=== PATIENT | male | born 1970 | race Hispanic/Latino ===

== ENCOUNTER 2024-06-06 12:59 | Emergency (ER) | payer OTHER ==
[~2024-06-06] VITALS: Ht 182.9 cm; Wt 120.2 kg
[2024-06-06] MEDS ORDERED: IBUPROFEN 100 MG/5 ML SUSP UDCUP PO STA (13:03)
[2024-06-06] MEDS ORDERED: CEFTRIAXONE 1G VIAL IM ONE (13:30)
[2024-06-06] MEDS: TETRACAINE HCL 0.5% 4 ML OPHTH SOLN OP STA (14:13)
[2024-06-06] MEDS: FLUORESCEIN SODIUM 1 STRIP STRIP ONE (14:13)
[2024-06-06 14:22] VITALS: BP 122/78; PULSE 78; RESP 18; O2SAT 98
== END 2024-06-06 14:22 | disposition home or self-care (01) ==
LOC: EDH 12:59
DX: S05.8X2A Other injuries of left eye and orbit, initial encounter (principal); S05.8X1A Other injuries of right eye and orbit, initial encounter; E11.9 Type 2 diabetes mellitus without complications; Z88.8 Allergy status to other drugs, medicaments and biological substances; X58.XXXA Exposure to other specified factors, initial encounter; Y93.89 Activity, other specified; Y92.89 Other specified places as the place of occurrence of the external cause; Y99.8 Other external cause status

== ENCOUNTER 2024-08-17 11:54 | Emergency (ER) | payer OTHER ==
[~2024-08-17] VITALS: Ht 182.9 cm; Wt 124.7 kg
[2024-08-17] MEDS: PANTOPrazole 40 MG/VIAL IVP ONE (12:26)
[2024-08-17] MEDS: ondanSETRON 4MG INJ IVP ONE (12:26)
[2024-08-17] MEDS: LACTATED RINGERS 1000ML 1,000 ML IV ONE (12:26)
[2024-08-17] MEDS: ketOROlac 30MG VIAL (30MG/ML) IVP ONE (12:41)
[2024-08-17 12:52] LABS: BASOPHILS # (AUTO) 0.06 K/uL (0.00-0.20); BASOPHILS % (AUTO) 0.9 % (0.0-5.0); EOSINOPHILS # (AUTO) 0.26 K/uL (0.00-0.70); EOSINOPHILS % (AUTO) 3.8 % (0.0-8.0); IMMATURE GRANULOCYTE ABSOLUTE 0.01 K/uL (0-1); LYMPHOCYTES # (AUTO) 1.4 K/uL (1.0-4.8); LYMPHOCYTES % (AUTO) 20.4 % (21.0-51.0); MEAN CORPUSCULAR HEMOGLOBIN 28.9 pg (27.0-33.0); MEAN CORPUSCULAR HGB CONC 34.3 g/dL (32.0-36.0); MEAN CORPUSCULAR VOLUME 84.3 fL (79-99); MONOCYTES # (AUTO) 0.4 K/uL (0.1-1.0); MONOCYTES % (AUTO) 6.3 % (3.0-13.0); NEUTROPHILS # (AUTO) 4.7 K/uL (1.8-7.7); NEUTROPHILS % (AUTO) 68.5 % (40.0-77.0); PLATELET COUNT (AUTO) 200 K/uL (130-400); RED BLOOD CELL COUNT(AUTO) 5.22 MIL/uL (4.50-6.20); WHITE BLOOD COUNT (AUTO) 6.8 K/uL (4.8-10.8)
[2024-08-17 13:06] LABS: APPEARANCE,URINE CLEAR (CLEAR); BILIRUBIN,URINE NEGATIVE (NEGATIVE); COLOR,URINE YELLOW (YELLOW); GLUCOSE, URINE (UA) NEGATIVE (NEGATIVE); KETONES,URINE NEGATIVE (NEGATIVE); LEUKOCYTE ESTERASE ,URINE NEGATIVE Leu/uL (NEGATIVE); NITRATE,URINE NEGATIVE (NEGATIVE); OCCULT BLOOD,URINE NEGATIVE (NEGATIVE); PROTEIN,URINE NEGATIVE (NEGATIVE); UROBILINOGEN,URINE 0.2 mg/dL (0.2-1.0)
[2024-08-17 13:10] LABS: ADD UA MICROSCOPIC NO
[2024-08-17 13:11] LABS: POTASSIUM 4.1 mmol/L (3.5-5.1)
[2024-08-17 13:15] LABS: ALBUMIN 3.8 g/dL (3.5-5.0); BILIRUBIN,TOTAL 0.4 mg/dL (0.2-1.0); TOTAL PROTEIN, SERUM 7.1 g/dL (6.0-8.3)
[2024-08-17 14:18] VITALS: BP 136/68; PULSE 73; RESP 18; TEMP 98.2; O2SAT 99
[2024-08-17] MEDS: MAG/ALUM/SIMETH 30 ML UDCUP PO ONE (14:18)
[2024-08-17] MEDS: LIDOCAINE HCL 2% VISCOUS 15 ML UDCUP PO ONE (14:18)
== END 2024-08-17 14:29 | disposition home or self-care (01) ==
LOC: EDH 11:54
DX: K21.00 Gastro-esophageal reflux disease with esophagitis, without bleeding (principal); E11.9 Type 2 diabetes mellitus without complications; E78.00 Pure hypercholesterolemia, unspecified; Z88.1 Allergy status to other antibiotic agents
CPT/HCPCS: 99285; 96374; 76705; 96375; 82270; 82550; 84484; 80053; 83690; 85025; 81003; 36415; 93005; J7120; J2405; J1885; J2470

== ENCOUNTER 2024-10-02 01:45 | Inpatient (IN) | payer OTHER ==
[2024-10-02] VITALS (7 sets, daily range): BP systolic 107–145; BP diastolic 56–80; PULSE 59–70; RESP 16–18; TEMP 97.4–98; O2SAT 98
[~2024-10-02] VITALS: Ht 182.9 cm; Wt 111.2 kg
[2024-10-02 02:17] LABS: BASOPHILS # (AUTO) 0.06 K/uL (0.00-0.20); BASOPHILS % (AUTO) 0.8 % (0.0-5.0); EOSINOPHILS # (AUTO) 0.17 K/uL (0.00-0.70); EOSINOPHILS % (AUTO) 2.3 % (0.0-8.0); HEMATOCRIT 40.4 % (42-54); IMMATURE GRANULOCYTE ABSOLUTE 0.03 K/uL (0-1); LYMPHOCYTES # (AUTO) 1.5 K/uL (1.0-4.8); LYMPHOCYTES % (AUTO) 21.1 % (21.0-51.0); MEAN CORPUSCULAR HEMOGLOBIN 28.9 pg (27.0-33.0); MEAN CORPUSCULAR HGB CONC 34.7 g/dL (32.0-36.0); MEAN CORPUSCULAR VOLUME 83.5 fL (79-99); MONOCYTES # (AUTO) 0.6 K/uL (0.1-1.0); MONOCYTES % (AUTO) 7.9 % (3.0-13.0); NEUTROPHILS # (AUTO) 4.9 K/uL (1.8-7.7); NEUTROPHILS % (AUTO) 67.5 % (40.0-77.0); PLATELET COUNT (AUTO) 210 K/uL (130-400); RED BLOOD CELL COUNT(AUTO) 4.84 MIL/uL (4.50-6.20); RED CELL DISTRIBUTION WIDTH 12.1 % (11.0-15.5); WHITE BLOOD COUNT (AUTO) 7.3 K/uL (4.8-10.8)
--- NOTE | 2024-10-02 02:30 | ERN ---
General Chief Complaint: Abdominal Pain Stated Complaint: ABDOMINAL PAIN Time Seen by MD: 01:54 History of Present Illness Initial Comments Mr. Strange is a very pleasant 54-year-old male significant past medical history of morbid obesity diabetes and essential hypertension who presents today with a chief complaint of abdominal pain. Patient states that he has abdominal pain is radiating over his right upper quadrant. Patient states he had similar pain earlier this year in March where he was told he had appendicitis/cholelithiasis. Patient reports he started experiencing this pain at around 7:00 p.m. yesterday. He states he had some chicken sausage and fajitas prior to his pain. Allergies: Coded Allergies: clindamycin (Unverified Allergy, Unknown, 06/06/24) Past Medical History Past Medical History: Diabetes-Type II, High Cholesterol Past Surgical History: None Surgical History Other: VASECTOMY ROS Dictation Constitutional: Negative for fever,chills, and weight loss Eyes: Negative for injury, pain,redness, and discharge ENT: Negative for injury,pain or swelling Cardiovascular: Negative for chest pain, palpitations, and edema Respiratory: Negative for shortness of breath, cough, and wheezing, Abdomen/GI: Positive for abdominal pain Back: Negative for injury and pain : Negative for injury, bleeding and discharge MS/Extremity: Negative for injury and deformity Skin: Negative for rash, and discoloration Neuro: Negative for headache, weakness, numbness, tingling, and seizure Psych: Negative for suicide ideation, homicidal ideation, and hallucinations Physical Exam Physical Exam Dictation General: awake, alert, NAD Head/Face: Normocephalic, atraumatic Eyes: PERRL, EOMI, vision at baseline ENT: oral cavity clear, TMs clear, no signs of infection Neck: Trachea midline, supple, no nuchal rigidity Cardiovascular: RRR, normal S1/S2, No MRGs, no JVD Respiratory: CTAB, no respiratory distress, No rales or wheezes Abdomen: Positive for pain in the epigastric region. Skin: Warm, dry, normal turgor, no rash MS/Extremity: Pulses equal, no cyanosis, neurovascular intact, FROM Neuro: COAx4, GCS 15, strength 5/5, CN 2-12 intact, normal cerebellar exam, normal gait, Psych: Normal behavior, mood, and affect normal Results Laboratory and Microbiology Lab and Micro Result Laboratory Tests Test 10/02/24 02:09 10/02/24 03:20 White Blood Count 7.3 K/uL (4.8-10.8) Red Blood Count 4.84 MIL/uL (4.50-6.20) Hemoglobin 14.0 g/dL (14.0-18.0) Hematocrit 40.4 % (42-54) L Mean Corpuscular Volume 83.5 fL (79-99) Mean Corpuscular Hemoglobin 28.9 pg (27.0-33.0) Mean Corpuscular Hemoglobin Concent 34.7 g/dL (32.0-36.0) Red Cell Distribution Width 12.1 % (11.0-15.5) Platelet Count 210 K/uL (130-400) Mean Platelet Volume 10.0 fL (7.5-10.5) Immature Granulocyte % (Auto) 0.4 % (0-1) Neutrophils (%) (Auto) 67.5 % (40.0-77.0) Lymphocytes (%) (Auto) 21.1 % (21.0-51.0) Monocytes (%) (Auto) 7.9 % (3.0-13.0) Eosinophils (%) (Auto) 2.3 % (0.0-8.0) Basophils (%) (Auto) 0.8 % (0.0-5.0) Neutrophils # (Auto) 4.9 K/uL (1.8-7.7) Lymphocytes # (Auto) 1.5 K/uL (1.0-4.8) Monocytes # (Auto) 0.6 K/uL (0.1-1.0) Eosinophils # (Auto) 0.17 K/uL (0.00-0.70) Basophils # (Auto) 0.06 K/uL (0.00-0.20) Absolute Immature Granulocyte (auto 0.03 K/uL (0-1) Nucleated Red Blood Cells 0.0 % (0.0-0.19) Sodium Level 136 mmol/L (136-145) Potassium Level 4.2 mmol/L (3.5-5.1) Chloride Level 102 mmol/L (101-111) Carbon Dioxide Level 28 mmol/L (21-32) Blood Urea Nitrogen 22 mg/dL (7-18) H Creatinine 1.2 mg/dL (0.5-1.3) Glomerular Filtration Rate Calc 71 mL/min (>90) Random Glucose 216 mg/dL (70-105) H Total Calcium 9.3 mg/dL (8.5-10.1) Total Bilirubin 0.3 mg/dL (0.2-1.0) Aspartate Amino Transf (AST/SGOT) 18 U/L (10-37) Alanine Aminotransferase (ALT/SGPT) 34 U/L (12-78) Alkaline Phosphatase 80 U/L (50-136) Total Creatine Kinase 197 U/L (21-232) # Troponin I High Sensitivity 10 ng/L (4-75) Total Protein 6.8 g/dL (6.0-8.3) Albumin 3.7 g/dL (3.5-5.0) Amylase Level 33 U/L (25-115) Lipase 23 U/L (16-77) Urine Color YELLOW (YELLOW) Urine Appearance CLEAR (CLEAR) Urine pH 5.5 (5.0-8.0) Urine Specific [place] 1.040 (1.001-1.031) Urine Protein 50 mg/dL (NEGATIVE) H Urine Glucose (UA) 30 mg/dL (NEGATIVE) H Urine Ketones 5 mg/dL (NEGATIVE) H Urine Occult Blood NEGATIVE (NEGATIVE) Urine Nitrate NEGATIVE (NEGATIVE) Urine Bilirubin NEGATIVE mg/dL (NEGATIVE) Urine Urobilinogen 2.0 mg/dL (0.2-1.0) H Urine Leukocyte Esterase NEGATIVE Mike/uL Urine RBC 0-1 /HPF (0-1) Urine WBC 0-1 /HPF (0-1) Urine Squamous Epithelial Cells RARE /HPF (0-2) Urine Bacteria RARE /HPF (None Seen) Urine Hyaline Casts 2-5 /LPF (0-1 /LPF) H MDM Patient's CT does show acute cholecystitis. Patient will be admitted for further evaluation and care and surgical evaluation MDM: Differential diagnosis: Acute cholecystitis Rationale: Tests considered and ordered secondary to shared decision making include: labs, ECG and radiology Previous outside records reviewed: Old ER visits. Risk of complication and/or morbidity or mortality of patient management: None Medications-Per medication reconciliation Need for hospitalization: Patient does meet criteria for hospitalization. Need for emergency major/minor surgery: No There are no social concerns with this patient. Prescription drug management Prescriptions will include symptomatic care Patient's prior external medical records from other ER visits were reviewed by me as indicated. Prior testing and results from previous visits were reviewed. Prior tests were taken into account with medical decision making and resource utilization, independent historian/historians were used to obtain complete medical history. I independently interpreted the test that were performed, results were reviewed by me and considered findings on radiology if ordered. Medical management and examination interpretation discussions were had by me with other qualified healthcare professionals as indicated for the patient's care. ED Course Orders Procedure Category Date Status Time Cbc With Differential LAB 10/02/24 Complete 02:00 Comprehensive LAB 10/02/24 Complete Metabolic Panel 02:00 Amylase LAB 10/02/24 Complete 02:00 Troponin I High LAB 10/02/24 Complete Sensitivity 02:00 Urinalysis Profile LAB 10/02/24 Complete 02:00 Ct Abdomen/Pelvis CT 10/02/24 Taken W/Contrast 02:00 Lactated Ringers PHA 10/02/24 Complete 1000ml (Lactated 02:00 Morphine 4mg Syg PHA 10/02/24 Complete (Morphine 4mg Syg) 02:00 Ondansetron 4mg Inj PHA 10/02/24 Complete (Zofran 4mg Inj) 02:00 Lidocaine Hcl 2% PHA 10/02/24 Complete Viscous (Lidocaine Hcl 02:00 Mag/Alum/Simeth 30ml PHA 10/02/24 Complete (Maalox Plus 30ml) 02:00 Dicyclomine Hcl PHA 10/02/24 Complete (Bentyl 10mg/5ml 02:00 Creatine Kinase, Total LAB 10/02/24 Complete 02:00 Lipase LAB 10/02/24 Complete 02:00 Ketorolac PHA 10/02/24 Complete Tromethamine 30mg/Ml 03:00 Iohexol (Omnipaque) PHA 10/02/24 Complete 03:52 Current Medications Medications (Trade) Dose Ordered Sig/Marta Route PRN Reason Start Time Stop Time Status Last Admin Dose Admin Al Hydroxide/Mg Hydroxide (MAALox PLUS 30ML) 30 ml ONCE ONCE PO 10/02/24 02:00 10/02/24 02:02 DC 10/02/24 02:32 Dicyclomine HCl (Bentyl 10mg/5ml Syrup) 10 mg ONCE ONCE PO 10/02/24 02:00 10/02/24 02:02 DC 10/02/24 02:32 Iohexol (Omnipaque) 75 ml STK-MED ONCE IV 10/02/24 03:52 10/02/24 03:52 DC Ketorolac Tromethamine (toRADol) 30 mg ONCE ONCE IM 10/02/24 03:00 10/02/24 03:01 DC 10/02/24 03:06 Lactated Ringer's 1,000 ml @ 0 mls/hr ONCE ONCE IV 10/02/24 02:00 10/02/24 02:02 DC 10/02/24 02:34 Lidocaine HCl (Lidocaine HCl 2% Viscous) 10 ml ONCE ONCE PO 10/02/24 02:00 10/02/24 02:02 DC 10/02/24 02:32 Morphine Sulfate (morPHINE 4MG SYG) 4 mg ONCE ONCE IVP 10/02/24 02:00 10/02/24 02:02 DC 10/02/24 02:33 Ondansetron HCl (zoFRAN 4MG INJ) 4 mg ONCE ONCE IVP 10/02/24 02:00 10/02/24 02:02 DC 10/02/24 02:32 Vital Signs Date Time Temp Pulse Resp B/P (MAP) Pulse Ox O2 Delivery O2 Flow Rate FiO2 10/02/24 03:59 97.9 77 20 165/83 100 Room Air* 0 10/02/24 02:38 97.9 64 20 155/73 100 Room Air* 0 10/02/24 01:46 97.5 66 16 175/88 97 Room Air 0 DX & DISP Disposition: Inpatient Departure Impression: Primary Impression: Acute cholecystitis Condition: Stable Referrals: SELF,REFERRAL (PCP) SEYMOUR PEREZ MD Oct 02, 2024 02:30
[2024-10-02] MEDS: LIDOCAINE HCL 2% VISCOUS 15 ML UDCUP PO ONE (02:32)
[2024-10-02] MEDS: MAG/ALUM/SIMETH 30 ML UDCUP PO ONE (02:32)
[2024-10-02] MEDS: DICYCLOMINE HCL 10 MG/5 ML ML PO ONE (02:32)
[2024-10-02] MEDS: ondanSETRON 4MG INJ IVP ONE (02:32)
[2024-10-02 02:33] LABS: CREATININE 1.2 mg/dL (0.5-1.3); POTASSIUM 4.2 mmol/L (3.5-5.1)
[2024-10-02] MEDS: morPHINE 4 MG SYG IVP ONE (02:33)
[2024-10-02] MEDS: LACTATED RINGERS 1000ML 1,000 ML IV ONE ×2 (02:34→05:10)
[2024-10-02 02:37] LABS: ALBUMIN 3.7 g/dL (3.5-5.0); BILIRUBIN,TOTAL 0.3 mg/dL (0.2-1.0); TOTAL PROTEIN, SERUM 6.8 g/dL (6.0-8.3)
[2024-10-02] MEDS: ketOROlac 30MG VIAL (30MG/ML) IM ONE (03:06)
[2024-10-02 03:40] LABS: APPEARANCE,URINE CLEAR (CLEAR); BILIRUBIN,URINE NEGATIVE (NEGATIVE); COLOR,URINE YELLOW (YELLOW); GLUCOSE, URINE (UA) 30 mg/dL (NEGATIVE); KETONES,URINE 5 mg/dL (NEGATIVE); LEUKOCYTE ESTERASE ,URINE NEGATIVE Leu/uL (NEGATIVE); NITRATE,URINE NEGATIVE (NEGATIVE); OCCULT BLOOD,URINE NEGATIVE (NEGATIVE); PH,URINE 5.5 (5.0-8.0); PROTEIN,URINE 50 mg/dL (NEGATIVE)
[2024-10-02 03:49] LABS: ADD UA MICROSCOPIC YES
[2024-10-02 03:52] LABS: BACTERIA,URINE RARE /HPF (None Seen); MUCUS,URINE MOD LPF (None Seen); RBC,URINE 0-1 /HPF (0-1); SQUAMOUS EPITHELIAL CELL,UR RARE /HPF (0-2); WBC,URINE 0-1 /HPF (0-1)
[2024-10-02] MEDS ORDERED: IOHEXOL-350 75 ML VIAL IV ONE (03:52)
[2024-10-02] MEDS ORDERED: acetaMINOPHEN 650 MG SUPPOSITORY RC PRN (05:00)
[2024-10-02] MEDS ORDERED: TEMAZepam 15 MG CAPSULE PO PRN (05:00)
[2024-10-02] MEDS ORDERED: doCUSate SODIUM 100 MG CAP PO PRN (05:00)
[2024-10-02] MEDS ORDERED: hydrALAZine 20MG/ML VIAL IV PRN (05:00)
--- NOTE | 2024-10-02 05:15 | HP ---
[facility] HISTORY AND PHYSICAL Date of Service: Oct 02, 2024 Time of Service: 05:15 PCP: [facility] Attending/supervising physician: Dr. Tali Ontiveros and Dr. Live HISTORY OF PRESENT ILLNESS: Mr. Strange is a 54-year-old male significant past medical history of morbid obesity, diabetes type , and essential hypertension who presented to the ED for evaluation of abdominal pain onset last night. Patient states that he has abdominal pain radiated over his right upper quadrant. Patient stated he had similar pain earlier this year in March where he was told he had appendicitis/cholelithiasis. Patient reported he started experiencing this pain at around 7:00 p.m. yesterday. He states he had some chicken sausage and fajitas prior to his pain. Remarkable lab results: Hematocrit 40.4, BUN 22, GFR 71, glucose 216, UA: Positive ketones, glucose, protein, urobilinogen. In ED the patient was administered LR 2 L bolus, morphine 4 mg IV, Zofran 4 mg IV, viscous lidocaine p.o., Maalox p.o., Bentyl, Toradol 30 mg IV. I went to assess the patient at bedside in ED 17. Patient appeared comfortable and in no distress. Patient reports that after several medications he is more comfortable. I informed patient of diagnostics and plan of care. The patient verbalizes understanding and is in agreement with the plan. Plan and assessment are listed below. REVIEW OF SYSTEMS 12-point ROS reviewed with patient. All pertinent positives mentioned above. Otherwise negative, nonpertinent, or noncontributory. PAST MEDICAL HISTORY: As listed above PAST SURGICAL HISTORY: Vasectomy PAST SOCIAL HISTORY: Denied alcohol, illicit drug, tobacco use FAMILY HISTORY: Noncontributory Coded Allergies: clindamycin (Unverified Allergy, Unknown, 06/06/24) PHYSICAL EXAM GENERAL APPEARANCE: The patient is awake, alert, and oriented, in no acute cardiopulmonary distress. NEUROLOGICAL: Cranial nerves II-XII grossly intact. Motor is 5/5 in bilateral upper and lower extremities proximal to distal. No sensory deficits. HEENT: Face is symmetric. Pupils are equal and reactive. Extraocular movements are intact. NECK: Supple. No JVD. No thyromegaly. No submental, submandibular, pre-/postauricular, occipital or supraclavicular lymphadenopathy. CHEST: Normal chest expansion. No Telemetry. LUNGS: Absence of any rales, rhonchi or any wheezing. CARDIOVASCULAR: Regular. S1 and S2 normal. No appreciable rubs, murmurs or gallops. ABDOMEN: Obese. Soft, nontender, and nondistended. There is no rebound, voluntary guarding, or rigidity. : Deferred. No Segura. EXTREMITIES: Non-edematous and not cyanotic. No clubbing. Good capillary refill. SKIN: No skin breakdown. Vital Sign (Last 24 Hours) 10/02/24 03:59 Temp 97.9 Pulse 77 Resp 20 B/P (MAP) 165/83 Pulse Ox 100 O2 Delivery Room Air* O2 Flow Rate 0 FiO2 21 LABS: Laboratory: Test 10/02/24 03:20 10/02/24 02:09 Range/Units Urine Color YELLOW YELLOW Urine Appearance CLEAR CLEAR Urine pH 5.5 5.0-8.0 Urine Specific [place] 1.040 H 1.001-1.031 Urine Protein 50 H NEGATIVE mg/dL Urine Glucose (UA) 30 H NEGATIVE mg/dL Urine Ketones 5 H NEGATIVE mg/dL Urine Occult Blood NEGATIVE NEGATIVE Urine Nitrate NEGATIVE NEGATIVE Urine Bilirubin NEGATIVE NEGATIVE mg/dL Urine Urobilinogen 2.0 H 0.2-1.0 mg/dL Urine Leukocyte Esterase NEGATIVE NEGATIVE Mike/uL Urine RBC 0-1 0-1 /HPF Urine WBC 0-1 0-1 /HPF Urine Squamous Epithelial Cells RARE 0-2 /HPF Urine Bacteria RARE None Seen /HPF Urine Hyaline Casts 2-5 H 0-1 /LPF /LPF White Blood Count 7.3 4.8-10.8 K/uL Red Blood Count 4.84 4.50-6.20 MIL/uL Hemoglobin 14.0 14.0-18.0 g/dL Hematocrit 40.4 L 42-54 % Mean Corpuscular Volume 83.5 79-99 fL Mean Corpuscular Hemoglobin 28.9 27.0-33.0 pg Mean Corpuscular Hemoglobin Concent 34.7 32.0-36.0 g/dL Red Cell Distribution Width 12.1 11.0-15.5 % Platelet Count 210 130-400 K/uL Mean Platelet Volume 10.0 7.5-10.5 fL Immature Granulocyte % (Auto) 0.4 0-1 % Neutrophils (%) (Auto) 67.5 40.0-77.0 % Lymphocytes (%) (Auto) 21.1 21.0-51.0 % Monocytes (%) (Auto) 7.9 3.0-13.0 % Eosinophils (%) (Auto) 2.3 0.0-8.0 % Basophils (%) (Auto) 0.8 0.0-5.0 % Neutrophils # (Auto) 4.9 1.8-7.7 K/uL Lymphocytes # (Auto) 1.5 1.0-4.8 K/uL Monocytes # (Auto) 0.6 0.1-1.0 K/uL Eosinophils # (Auto) 0.17 0.00-0.70 K/uL Basophils # (Auto) 0.06 0.00-0.20 K/uL Absolute Immature Granulocyte (auto 0.03 0-1 K/uL Nucleated Red Blood Cells 0.0 0.0-0.19 % Sodium Level 136 136-145 mmol/L Potassium Level 4.2 3.5-5.1 mmol/L Chloride Level 102 101-111 mmol/L Carbon Dioxide Level 28 21-32 mmol/L Blood Urea Nitrogen 22 H 7-18 mg/dL Creatinine 1.2 0.5-1.3 mg/dL Glomerular Filtration Rate Calc 71 >90 mL/min Random Glucose 216 H 70-105 mg/dL Total Calcium 9.3 8.5-10.1 mg/dL Total Bilirubin 0.3 0.2-1.0 mg/dL Aspartate Amino Transf (AST/SGOT) 18 10-37 U/L Alanine Aminotransferase (ALT/SGPT) 34 12-78 U/L Alkaline Phosphatase 80 50-136 U/L Total Creatine Kinase 197 # 21-232 U/L Troponin I High Sensitivity 10 4-75 ng/L Total Protein 6.8 6.0-8.3 g/dL Albumin 3.7 3.5-5.0 g/dL Amylase Level 33 25-115 U/L Lipase 23 16-77 U/L Current Medications Medications (Trade) Dose Ordered Sig/Marta Route PRN Reason Start Time Stop Time Status Last Admin Dose Admin Acetaminophen (TYLenol 325MG TAB) 650 mg Q6H PRN PO FEVER/MILD PAIN LEVEL 1-3 10/02/24 05:00 11/01/24 04:59 Acetaminophen (TYLenol 650MG SUPPOSITORY) 650 mg Q6H PRN RC FEVER / MILD PAIN 1-3 IF NPO 10/02/24 05:00 11/01/24 04:59 Docusate Sodium (COLace 100MG CAP) 100 mg BID PRN PO c 10/02/24 05:00 11/01/24 04:59 Hydralazine HCl (APRESOLine 20MG INJ) 10 mg Q2H PRN IV SBP GREATER THAN 160 10/02/24 05:00 11/01/24 04:59 Hydromorphone HCl (DiLAUDid 1MG INJ) 0.5 mg Q4H PRN IVP SEVERE PAIN (7-10) 10/02/24 05:00 10/07/24 04:59 Insulin Human Regular (humuLIN R 100 UNIT/ML 3ML) INSULIN SLIDING SCAL... ACHS SQ 10/02/24 07:30 11/01/24 07:29 Lactulose (Constulose 20gm/ 30ml Udcup) 20 gm Q6H PRN PO CONSTIPATION 10/02/24 05:00 11/01/24 04:59 Morphine Sulfate (morPHINE 2MG SYG) 2 mg Q4H PRN IM MODERATE PAIN (4-6) 10/02/24 05:30 10/09/24 05:29 Ondansetron HCl (zoFRAN 4MG INJ) 4 mg Q6H PRN IVP NAUSEA/VOMITING 10/02/24 05:00 11/01/24 04:59 Temazepam (restORIL 15 MG CAP) 15 mg HS PRN PO INSOMNIA/SLEEP 10/02/24 05:00 11/01/24 04:59 DIAGNOSTICS / RADIOLOGY: [ ] ASSESSMENT: Acute cholecystitis Acute dehydration Acute kidney injury, GFR 71 Diabetes mellitus with hyperglycemia Ketonuria Proteinuria Uncontrolled hypertension Obesity, BMI 33 PLAN: Admit to medical/ surgical floor. Consulted Dr. Hyatt, general surgeon for dx of cholecystis. Keep NPO. Gentle IV hydration. (ED administered 2 L lactated Ringer's bolus) Zosyn 3.375 mg IV Q 8hours. P.r.n. medications for: Pain management, nausea, vomiting, constipation, hypertension. Monitor renal and liver function. Monitor electrolytes and treat accordingly. Glucometer checks a.c. and HS with insulin regular sliding scale. Blood pressure checks every 4 hours and as needed. Reconcile home medications once available. DVT and GI prophylaxis: SCDs and Protonix. ADVANCED CARE PLANNING 1. Which of the following were discussed? Hospice Care - No Therapeutic options - Yes Advance Directives - No Other discussions - 2. Discussed with who? Patient 3. Voluntary nature of this service was explained to the patient? Yes 4. Amount of time spent - _ over 35 minute 5. Reviewed by Physician? (if this service was performed by NPP) Yes Patient seen and examined by me. Agree with note by SUPERVISOR GLYCERIN SEE ADDITIONAL ORDERS PER CHART DISCUSSED WITH NURSING STAFF ALEAH CABA PROCESS CONTROL TECHNICIAN Oct 02, 2024 05:15
[2024-10-02] MEDS ORDERED: morPHINE 2 MG SYG IM PRN (05:30)
--- NOTE | 2024-10-02 05:32 | NUR ---
ED DOCTOR PAGED DR. JIMENEZ FOR SURGICAL CONSULT, NO ANSWER, PENDING A CALL BACK
[2024-10-02] MEDS ORDERED: 0.9%NACL 50ML IV SCH (06:00)
--- NOTE | 2024-10-02 06:00 | NUR ---
ADMIT PT ADMITTED TO ROOM 430, AAOX4, DENIES ANY ABDOMINAL PAINS AT THIS TIME. ADMISSION CARE DONE. ADMISSION V/S MONITORED. ADMISSION ASSESSMENT DONE, PLEASE REFER TO CHART. PLACED IN BED COMFORTABLY WITH HOB ELEVATED. KEPT NPO EXCEPT MEDS. STARTED ON IVF OF NS REGULATED AT 75CC/HR. STARTED ON IV ZOSYN FOR ANTIBIOTICS. ADMISSION DATA BASE COMPLETED. ORIENTED TO ROOM AND UNIT. IN FOR MORE CARE AND MANAGEMENT.
[2024-10-02] MEDS: ZOSYN 3.375GM +NS 50ML IVPB SCH (06:01)
[2024-10-02] MEDS: 0.9%NACL 1000ML 1,000 ML IV SCH (06:01)
[2024-10-02] MEDS: INSULIN humuLIN R 100 UNIT/ML 3ML SQ SCH (06:10)
[2024-10-02] MEDS ORDERED: PoTASSium chloRIDE 10MEQ/100ML 100 ML IV PRN (06:30)
[2024-10-02] MEDS ORDERED: GLUCAGON 1MG KIT 1 MG ML IM PRN (06:30)
[2024-10-02] MEDS ORDERED: DEXTROSE 50%-WATER 50 ML DISP.SYRIN IV PRN (06:30)
--- NOTE | 2024-10-02 08:35 | HMCIMG ---
CT ABDOMEN/PELVIS W/CONTRAST REASON: Abdominal Pain COMPARISON: None. TECHNIQUE: Images are obtained from lung bases to symphysis pubis following IV contrast, 75 cc Omnipaque [id number]. FINDINGS: Lung bases are clear. There are no focal liver lesions. There are several very small subcentimeter renal cysts in each kidney. Kidneys appear otherwise unremarkable. Spleen and pancreas appear unremarkable. The gallbladder appears normal as well. Bowel loops appear unremarkable. This includes normal appearance of the appendix There is no evidence of free fluid or intraperitoneal air. There are no focal fluid collections. Aorta and retroperitoneum appear normal as do pelvic soft tissue structures. The anterior abdominal wall is intact. Osseous structures appear unremarkable. IMPRESSION: 1. No acute finding on postcontrast CT abdomen and pelvis. CT was performed with one or more following dose reduction techniques: automated exposure control, adjustment of the mA and kv according to patient's size, or use of a iterative reconstruction technique.
[2024-10-02] MEDS: PANTOPrazole 40 MG/VIAL IVP SCH (12:48)
--- NOTE | 2024-10-02 13:11 | PN ---
[facility] PROGRESS NOTE Date of Service: Oct 02, 2024 Time of Service: 13:11 SUBJECTIVE: Patient is seen at the bedside. He is awake alert and oriented. Vitals temperature 97.7, pulse rate 70, respiratory rate 18 , blood pressure 144/73, SpO2 98% on room air. He complains of mild epigastric and right upper quadrant pain. He denies headache, dizziness, chest pain, palpitations, nausea, vomiting, difficulty in breathing, constipation, diarrhea, difficulty in urination. Labs WBC 7.3, hemoglobin 14, BUN 22 , creatinine 1.2. CT abdomen/pelvis resulted in no acute findings. Urinalysis positive for glucose ketones and protein. Pending General surgery consult and HIDA scan. REVIEW OF SYSTEMS 12-point ROS reviewed with patient. All pertinent positives mentioned above. Otherwise negative, nonpertinent, or noncontributory. PHYSICAL EXAM GENERAL APPEARANCE: The patient is awake, alert, and oriented, in no acute cardiopulmonary distress. NEUROLOGICAL: Cranial nerves II-XII grossly intact. Motor is 5/5 in bilateral upper and lower extremities proximal to distal. No sensory deficits. HEENT: Face is symmetric. Pupils are equal and reactive. Extraocular movements are intact. NECK: Supple. No JVD. No thyromegaly. No submental, submandibular, pre- /postauricular, occipital or supraclavicular lymphadenopathy. CHEST: Normal chest expansion. No Telemetry. LUNGS: Absence of any rales, rhonchi or any wheezing. CARDIOVASCULAR: Regular. S1 and S2 normal. No appreciable rubs, murmurs or gallops. ABDOMEN: Obese. mild epigastric, right upper quadrant tenderness Soft, nontender, and nondistended. There is no rebound, voluntary guarding, or rigidity. : Deferred. No Segura. EXTREMITIES: Non-edematous and not cyanotic. No clubbing. Good capillary refill. SKIN: No skin breakdown. Vital Signs (last 8hr) Date Time Temp Pulse Resp B/P (MAP) Pulse Ox O2 Delivery O2 Flow Rate FiO2 10/02/24 12:00 97.9 63 16 145/77 96 Room Air 10/02/24 08:00 97.7 70 18 144/73 98 Room Air 21 10/02/24 06:00 98 Room Air* 0 10/02/24 05:45 97.9 68 18 134/79 95 Room Air 10/02/24 05:17 97.9 73 20 164/83 100 Room Air* 0 21 LABS: Laboratory: Test 10/02/24 12:19 10/02/24 03:20 10/02/24 02:09 Range/Units Whole Blood Glucose 143 H 70-110 MG/DL Urine Color YELLOW YELLOW Urine Appearance CLEAR CLEAR Urine pH 5.5 5.0-8.0 Urine Specific Gipsy 1.040 H 1.001-1.031 Urine Protein 50 H NEGATIVE mg/dL Urine Glucose (UA) 30 H NEGATIVE mg/dL Urine Ketones 5 H NEGATIVE mg/dL Urine Occult Blood NEGATIVE NEGATIVE Urine Nitrate NEGATIVE NEGATIVE Urine Bilirubin NEGATIVE NEGATIVE mg/dL Urine Urobilinogen 2.0 H 0.2-1.0 mg/dL Urine Leukocyte Esterase NEGATIVE NEGATIVE Mike/uL Urine RBC 0-1 0-1 /HPF Urine WBC 0-1 0-1 /HPF Urine Squamous Epithelial Cells RARE 0-2 /HPF Urine Bacteria RARE None Seen /HPF Urine Hyaline Casts 2-5 H 0-1 /LPF /LPF White Blood Count 7.3 4.8-10.8 K/uL Red Blood Count 4.84 4.50-6.20 MIL/uL Hemoglobin 14.0 14.0-18.0 g/dL Hematocrit 40.4 L 42-54 % Mean Corpuscular Volume 83.5 79-99 fL Mean Corpuscular Hemoglobin 28.9 27.0-33.0 pg Mean Corpuscular Hemoglobin Concent 34.7 32.0-36.0 g/dL Red Cell Distribution Width 12.1 11.0-15.5 % Platelet Count 210 130-400 K/uL Mean Platelet Volume 10.0 7.5-10.5 fL Immature Granulocyte % (Auto) 0.4 0-1 % Neutrophils (%) (Auto) 67.5 40.0-77.0 % Lymphocytes (%) (Auto) 21.1 21.0-51.0 % Monocytes (%) (Auto) 7.9 3.0-13.0 % Eosinophils (%) (Auto) 2.3 0.0-8.0 % Basophils (%) (Auto) 0.8 0.0-5.0 % Neutrophils # (Auto) 4.9 1.8-7.7 K/uL Lymphocytes # (Auto) 1.5 1.0-4.8 K/uL Monocytes # (Auto) 0.6 0.1-1.0 K/uL Eosinophils # (Auto) 0.17 0.00-0.70 K/uL Basophils # (Auto) 0.06 0.00-0.20 K/uL Absolute Immature Granulocyte (auto 0.03 0-1 K/uL Nucleated Red Blood Cells 0.0 0.0-0.19 % Sodium Level 136 136-145 mmol/L Potassium Level 4.2 3.5-5.1 mmol/L Chloride Level 102 101-111 mmol/L Carbon Dioxide Level 28 21-32 mmol/L Blood Urea Nitrogen 22 H 7-18 mg/dL Creatinine 1.2 0.5-1.3 mg/dL Glomerular Filtration Rate Calc 71 >90 mL/min Random Glucose 216 H 70-105 mg/dL Total Calcium 9.3 8.5-10.1 mg/dL Total Bilirubin 0.3 0.2-1.0 mg/dL Aspartate Amino Transf (AST/SGOT) 18 10-37 U/L Alanine Aminotransferase (ALT/SGPT) 34 12-78 U/L Alkaline Phosphatase 80 50-136 U/L Total Creatine Kinase 197 # 21-232 U/L Troponin I High Sensitivity 10 4-75 ng/L Total Protein 6.8 6.0-8.3 g/dL Albumin 3.7 3.5-5.0 g/dL Amylase Level 33 25-115 U/L Lipase 23 16-77 U/L Current Medications Medications (Trade) Dose Ordered Sig/Marta Route PRN Reason Start Time Stop Time Status Last Admin Dose Admin Acetaminophen (TYLenol 325MG TAB) 650 mg Q6H PRN PO FEVER/MILD PAIN LEVEL 1-3 10/02/24 05:00 11/01/24 04:59 Acetaminophen (TYLenol 650MG SUPPOSITORY) 650 mg Q6H PRN RC FEVER / MILD PAIN 1-3 IF NPO 10/02/24 05:00 11/01/24 04:59 Dextrose (D50w) 50 ml AD PRN IV HYPOGLYCEMIA PROTOCOL 10/02/24 06:30 11/01/24 06:29 Docusate Sodium (COLace 100MG CAP) 100 mg BID PRN PO c 10/02/24 05:00 11/01/24 04:59 Glucagon (Glucagon 1mg Kit) 1 mg AD PRN IM HYPOGLYCEMIA PROTOCOL 10/02/24 06:30 11/01/24 06:29 Hydralazine HCl (APRESOLine 20MG INJ) 10 mg Q2H PRN IV SBP GREATER THAN 160 10/02/24 05:00 11/01/24 04:59 Hydromorphone HCl (DiLAUDid 1MG INJ) 0.5 mg Q4H PRN IVP SEVERE PAIN (7-10) 10/02/24 05:00 10/07/24 04:59 Insulin Human Regular (humuLIN R 100 UNIT/ML 3ML) INSULIN SLIDING SCAL... ACHS SQ 10/02/24 07:30 11/01/24 07:29 Lactulose (Constulose 20gm/ 30ml Udcup) 20 gm Q6H PRN PO CONSTIPATION 10/02/24 05:00 11/01/24 04:59 Magnesium Sulfate 50 ml @ 0 mls/hr PROTOCOL PRN IV MAGNESIUM PROTOCOL 10/02/24 06:30 11/01/24 06:29 Morphine Sulfate (morPHINE 2MG SYG) 2 mg Q4H PRN IM MODERATE PAIN (4-6) 10/02/24 05:30 10/09/24 05:29 Ondansetron HCl (zoFRAN 4MG INJ) 4 mg Q6H PRN IVP NAUSEA/VOMITING 10/02/24 05:00 11/01/24 04:59 Pantoprazole Sodium (PROTonix 40MG INJ) 40 mg BID IVP 10/02/24 09:00 11/01/24 08:59 10/02/24 12:48 40 MG Piperacillin Sod/ Tazobactam Sod (Zosyn 3.375gm+NS 50ml) 3.375 gm Q8H IVPB 10/02/24 06:00 10/12/24 05:59 10/02/24 06:01 3.375 GM Potassium Chloride 100 ml @ 100 mls/hr AD PRN IV POTASSIUM PROTOCOL 10/02/24 06:30 11/01/24 06:29 Sodium Chloride 1,000 ml @ 75 mls/hr [id number] IV 10/02/24 06:00 11/01/24 05:59 10/02/24 06:01 75 MLS/HR Sodium Chloride (NS 50ml) 50 ml AD IV 10/02/24 06:00 10/02/24 05:51 DC Temazepam (restORIL 15 MG CAP) 15 mg HS PRN PO INSOMNIA/SLEEP 10/02/24 05:00 11/01/24 04:59 DIAGNOSTICS / RADIOLOGY: PROCEDURE: ABD PEL W - CT ABDOMEN/PELVIS W/CONTRAST CT ABDOMEN/PELVIS W/CONTRAST REASON: Abdominal Pain COMPARISON: None. TECHNIQUE: Images are obtained from lung bases to symphysis pubis following IV contrast, 75 cc Omnipaque [id number]. FINDINGS: Lung bases are clear. There are no focal liver lesions. There are several very small subcentimeter renal cysts in each kidney. Kidneys appear otherwise unremarkable. Spleen and pancreas appear unremarkable. The gallbladder appears normal as well. Bowel loops appear unremarkable. This includes normal appearance of the appendix There is no evidence of free fluid or intraperitoneal air. There are no focal fluid collections. Aorta and retroperitoneum appear normal as do pelvic soft tissue structures. The anterior abdominal wall is intact. Osseous structures appear unremarkable. IMPRESSION: 1. No acute finding on postcontrast CT abdomen and pelvis. ASSESSMENT: Acute cholecystitis POA Acute dehydration POA Acute kidney injury, GFR 71 Diabetes mellitus with hyperglycemia Ketonuria POA Proteinuria POA Uncontrolled hypertension Obesity, BMI 33 PLAN: Patient is currently NPO Follow up on General surgery consult Follow up on HIDA scan results Gentle IV hydration Continue Zosyn 3.375 mg IV Q 8hours. Continue P.r.n. medications for: Pain management, nausea, vomiting, constipation, hypertension. Monitor electrolytes and treat accordingly. Glucometer checks a.c. and HS with insulin regular sliding scale. Blood pressure checks every 4 hours and as needed. Continue DVT and GI prophylaxis: SCDs and Protonix. GEORGIA GUERRERO MD Oct 02, 2024 13:11
--- NOTE | 2024-10-02 16:45 | NUR ---
dr woo here and spoke with patient regarding surgery in am robotic/lap amber possible open
--- NOTE | 2024-10-02 16:46 | CONS ---
GENERAL SURGERY CONSULTATION NOTE DATE OF CONSULTATION: Oct 02, 2024 TIME OF CONSULTATION: 16:46 CONSULTING SERVICE: Tony Paige MD REQUESTING PHYSICAIN: [ ] REASON FOR CONSULTATION: [ ] HISTORY OF PRESENT ILLNESS: [ ] PAST MEDICAL HISTORY: [ ] PAST SURGICAL HISTORY: [ ] FAMILY HISTORY: [ ] SOCIAL HISTORY: [ ] Current Medications Medications (Trade) Dose Ordered Sig/Marta Route Start Time Stop Time Status Last Admin Dose Admin Insulin Human Regular (humuLIN R 100 UNIT/ML 3ML) INSULIN SLIDING SCAL... 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 PHYSICAL EXAMINATION: GENERAL: [Patient is lying comfortably in bed, not in any obvious distress.] HEAD: [Normal with no signs of head trauma.] EYES: [Not pale not jaundiced afebrile to touch.] ENT: [ Normal.] NECK: [Supple,no tenderness,no lymphadenopathy,no masses,no thyromegaly ,no bruits, no JVD.] LUNGS: [Clear breath sounds bilaterally. No wheezes, rales, or rhonchi.] HEART: [Regular rate and rhythm. Normal S1 and S2, without murmurs, rub or gallop.] VASC: [No edema. Peripheral pulses normal and equal in all extremities.] ABD: [Bowel sounds present,soft, RUQ tender, no masses, no organomegaly.] : [Normal, no suprapubic tenderness.] LYMPH: [No lymphadenopathy noted.] EXT: [ Warm soft, non tender.] SKIN: [ No rashes or lesions.] NEURO: [ Awake Alert and oriented x3.] Vital Signs (last 8hr) Date Time Temp Pulse Resp B/P (MAP) Pulse Ox O2 Delivery O2 Flow Rate FiO2 10/02/24 16:00 98.1 62 16 136/80 98 Room Air 21 10/02/24 12:00 97.9 63 16 145/77 96 Room Air 21 LABORATORY: [ ] Hematology Labs: Test 10/02/24 02:09 Range/Units White Blood Count 7.3 4.8-10.8 K/uL Red Blood Count 4.84 4.50-6.20 MIL/uL Hemoglobin 14.0 14.0-18.0 g/dL Hematocrit 40.4 L 42-54 % Mean Corpuscular Volume 83.5 79-99 fL Mean Corpuscular Hemoglobin 28.9 27.0-33.0 pg Mean Corpuscular Hemoglobin Concent 34.7 32.0-36.0 g/dL Red Cell Distribution Width 12.1 11.0-15.5 % Platelet Count 210 130-400 K/uL Mean Platelet Volume 10.0 7.5-10.5 fL Immature Granulocyte % (Auto) 0.4 0-1 % Neutrophils (%) (Auto) 67.5 40.0-77.0 % Lymphocytes (%) (Auto) 21.1 21.0-51.0 % Monocytes (%) (Auto) 7.9 3.0-13.0 % Eosinophils (%) (Auto) 2.3 0.0-8.0 % Basophils (%) (Auto) 0.8 0.0-5.0 % Neutrophils # (Auto) 4.9 1.8-7.7 K/uL Lymphocytes # (Auto) 1.5 1.0-4.8 K/uL Monocytes # (Auto) 0.6 0.1-1.0 K/uL Eosinophils # (Auto) 0.17 0.00-0.70 K/uL Basophils # (Auto) 0.06 0.00-0.20 K/uL Absolute Immature Granulocyte (auto 0.03 0-1 K/uL Nucleated Red Blood Cells 0.0 0.0-0.19 % Chemistry Labs: Test 10/02/24 16:09 10/02/24 02:09 Range/Units Whole Blood Glucose 135 H 70-110 MG/DL Sodium Level 136 136-145 mmol/L Potassium Level 4.2 3.5-5.1 mmol/L Chloride Level 102 101-111 mmol/L Carbon Dioxide Level 28 21-32 mmol/L Blood Urea Nitrogen 22 H 7-18 mg/dL Creatinine 1.2 0.5-1.3 mg/dL Glomerular Filtration Rate Calc 71 >90 mL/min Random Glucose 216 H 70-105 mg/dL Total Calcium 9.3 8.5-10.1 mg/dL Total Bilirubin 0.3 0.2-1.0 mg/dL Aspartate Amino Transf (AST/SGOT) 18 10-37 U/L Alanine Aminotransferase (ALT/SGPT) 34 12-78 U/L Alkaline Phosphatase 80 50-136 U/L Total Creatine Kinase 197 # 21-232 U/L Troponin I High Sensitivity 10 4-75 ng/L Total Protein 6.8 6.0-8.3 g/dL Albumin 3.7 3.5-5.0 g/dL Amylase Level 33 25-115 U/L Lipase 23 16-77 U/L DIAGNOSTICS / RADIOLOGY: [Copy/Paste Echos/Imaging Report here] ASSESSMENT: [] PLAN: [] NPO/IVF/IV ANTIOBIOTICS Schedule for OR We talked about various treatment options including but not limited to surgery. We talked about risks and benefits of surgery, patient verbalized understanding has agreed to proceed [ ]. We will schedule [ ]. TONY PAIGE MD Oct 02, 2024 16:46
--- NOTE | 2024-10-02 19:05 | CONS ---
GENERAL SURGERY CONSULTATION NOTE DATE OF CONSULTATION: Oct 02, 2024 TIME OF CONSULTATION: 19:03 CONSULTING SERVICE: Tony Paige MD REQUESTING PHYSICAIN: [ ] REASON FOR CONSULTATION: [ ] Abdominal pain HISTORY OF PRESENT ILLNESS: [ ] 54-year-old male who presented with abdominal pain Pain started yesterday associated with nausea and vomiting He denied any diarrhea or constipation He has had similar problem about a year ago and he had been on and off since t hen PAST MEDICAL HISTORY: [ ] Hypertension Diabetes PAST SURGICAL HISTORY: [ ] Vasectomy FAMILY HISTORY: [ ] Positive for hypertension SOCIAL HISTORY: [ ] No smoking No alcohol Current Medications Medications (Trade) Dose Ordered Sig/Marta Route Start Time Stop Time Status Last Admin Dose Admin Insulin Human Regular (humuLIN R 100 UNIT/ML 3ML) INSULIN SLIDING SCAL... 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 PHYSICAL EXAMINATION: GENERAL: [Patient is lying comfortably in bed, not in any obvious distress.] HEAD: [Normal with no signs of head trauma.] EYES: [Not pale not jaundiced afebrile to touch.] ENT: [ Normal.] NECK: [Supple,no tenderness,no lymphadenopathy,no masses,no thyromegaly ,no bruits, no JVD.] LUNGS: [Clear breath sounds bilaterally. No wheezes, rales, or rhonchi.] HEART: [Regular rate and rhythm. Normal S1 and S2, without murmurs, rub or gallop.] VASC: [No edema. Peripheral pulses normal and equal in all extremities.] ABD: [Bowel sounds present,soft, epigastric tenderness no masses, no organomegaly.] : [Normal, no suprapubic tenderness.] LYMPH: [No lymphadenopathy noted.] EXT: [ Warm soft, non tender.] SKIN: [ No rashes or lesions.] NEURO: [ Awake Alert and oriented x3.] Vital Signs (last 8hr) Date Time Temp Pulse Resp B/P (MAP) Pulse Ox O2 Delivery O2 Flow Rate FiO2 10/02/24 16:00 98.1 62 16 136/80 98 Room Air 21 10/02/24 12:00 97.9 63 16 145/77 96 Room Air 21 LABORATORY: [ ] Hematology Labs: Test 10/02/24 02:09 Range/Units White Blood Count 7.3 4.8-10.8 K/uL Red Blood Count 4.84 4.50-6.20 MIL/uL Hemoglobin 14.0 14.0-18.0 g/dL Hematocrit 40.4 L 42-54 % Mean Corpuscular Volume 83.5 79-99 fL Mean Corpuscular Hemoglobin 28.9 27.0-33.0 pg Mean Corpuscular Hemoglobin Concent 34.7 32.0-36.0 g/dL Red Cell Distribution Width 12.1 11.0-15.5 % Platelet Count 210 130-400 K/uL Mean Platelet Volume 10.0 7.5-10.5 fL Immature Granulocyte % (Auto) 0.4 0-1 % Neutrophils (%) (Auto) 67.5 40.0-77.0 % Lymphocytes (%) (Auto) 21.1 21.0-51.0 % Monocytes (%) (Auto) 7.9 3.0-13.0 % Eosinophils (%) (Auto) 2.3 0.0-8.0 % Basophils (%) (Auto) 0.8 0.0-5.0 % Neutrophils # (Auto) 4.9 1.8-7.7 K/uL Lymphocytes # (Auto) 1.5 1.0-4.8 K/uL Monocytes # (Auto) 0.6 0.1-1.0 K/uL Eosinophils # (Auto) 0.17 0.00-0.70 K/uL Basophils # (Auto) 0.06 0.00-0.20 K/uL Absolute Immature Granulocyte (auto 0.03 0-1 K/uL Nucleated Red Blood Cells 0.0 0.0-0.19 % Chemistry Labs: Test 10/02/24 16:09 10/02/24 02:09 Range/Units Whole Blood Glucose 135 H 70-110 MG/DL Sodium Level 136 136-145 mmol/L Potassium Level 4.2 3.5-5.1 mmol/L Chloride Level 102 101-111 mmol/L Carbon Dioxide Level 28 21-32 mmol/L Blood Urea Nitrogen 22 H 7-18 mg/dL Creatinine 1.2 0.5-1.3 mg/dL Glomerular Filtration Rate Calc 71 >90 mL/min Random Glucose 216 H 70-105 mg/dL Total Calcium 9.3 8.5-10.1 mg/dL Total Bilirubin 0.3 0.2-1.0 mg/dL Aspartate Amino Transf (AST/SGOT) 18 10-37 U/L Alanine Aminotransferase (ALT/SGPT) 34 12-78 U/L Alkaline Phosphatase 80 50-136 U/L Total Creatine Kinase 197 # 21-232 U/L Troponin I High Sensitivity 10 4-75 ng/L Total Protein 6.8 6.0-8.3 g/dL Albumin 3.7 3.5-5.0 g/dL Amylase Level 33 25-115 U/L Lipase 23 16-77 U/L DIAGNOSTICS / RADIOLOGY: [Copy/Paste Echos/Imaging Report here] ASSESSMENT: [] Abdominal pain Likely biliary colic versus acute cholecystitis Recurrent PLAN: [] NPO/IVF/IV ANTIOBIOTICS Awaiting HIDA scan Schedule for OR We talked about various treatment options including but not limited to surgery. We talked about risks and benefits of surgery, patient verbalized understanding has agreed to proceed [ ]. We will schedule [robotic/laparoscopic cholecystectomy possible ]. TONY PAIGE MD Oct 02, 2024 19:05
[2024-10-02] MEDS: ondanSETRON 4MG INJ IVP PRN (20:02)
[2024-10-02] MEDS: hydroMORPHone 1 MG INJ IVP PRN (20:02)
[2024-10-03] MEDS: acetaMINOPHEN 325 MG TAB PO PRN (02:13)
[2024-10-03 04:32] VITALS: BP 126/82; PULSE 78; RESP 18; TEMP 98.2
[2024-10-03 05:25] LABS: BASOPHILS # (AUTO) 0.03 K/uL (0.00-0.20); BASOPHILS % (AUTO) 0.5 % (0.0-5.0); EOSINOPHILS # (AUTO) 0.24 K/uL (0.00-0.70); HEMATOCRIT 38.1 % (42-54); IMMATURE GRANULOCYTE ABSOLUTE 0.02 K/uL (0-1); LYMPHOCYTES # (AUTO) 1.2 K/uL (1.0-4.8); MEAN CORPUSCULAR HEMOGLOBIN 29.2 pg (27.0-33.0); MEAN CORPUSCULAR HGB CONC 34.1 g/dL (32.0-36.0); MEAN CORPUSCULAR VOLUME 85.6 fL (79-99); MONOCYTES # (AUTO) 0.5 K/uL (0.1-1.0); MONOCYTES % (AUTO) 8.6 % (3.0-13.0); NEUTROPHILS % (AUTO) 66.6 % (40.0-77.0); PLATELET COUNT (AUTO) 174 K/uL (130-400); RED BLOOD CELL COUNT(AUTO) 4.45 MIL/uL (4.50-6.20); RED CELL DISTRIBUTION WIDTH 11.9 % (11.0-15.5)
[2024-10-03 06:34] LABS: ALBUMIN 3.2 g/dL (3.5-5.0); BILIRUBIN,TOTAL 0.6 mg/dL (0.2-1.0); CREATININE 1.1 mg/dL (0.5-1.3); MAGNESIUM 1.9 mg/dL (1.80-2.40); PHOSPHORUS 3.4 mg/dL (2.5-4.9); POTASSIUM 4.1 mmol/L (3.5-5.1); TOTAL PROTEIN, SERUM 5.9 g/dL (6.0-8.3)
[2024-10-03 08:00] VITALS: BP 127/73; PULSE 60; RESP 18; TEMP 97.7; O2SAT 98
--- NOTE | 2024-10-03 09:22 | HMCIMG ---
NM HIDA WITH EF/CCK REASON: Abdomial pain, Suspected cholecystitis COMPARISON: None TECHNIQUE: Images are obtained following administration of 7 mCi technetium 99m Choletec. FINDINGS: There is prompt hepatic parenchymal uptake. There is prompt excretion into the common duct and small bowel. There is no gallbladder activity visible through the 1 hour image. 2 hour delayed exam shows near complete clearing of hepatic activity with no gallbladder activity seen. IMPRESSION: 1. No gallbladder activity visible through 2 hour delay, findings are of concern for cystic duct obstruction and could indicate acute cholecystitis.
--- NOTE | 2024-10-03 11:22 | PN ---
[facility] PROGRESS NOTE Date of Service: Oct 03, 2024 Time of Service: 11:12 SUBJECTIVE: Patient is seen at the bedside. He is awake alert and oriented. Vitals temperature 97.7, pulse rate 70, respiratory rate 18 , blood pressure 144/73, SpO2 98% on room air. He complains of mild epigastric pain. He denies headache, dizziness, chest pain, palpitations, nausea, vomiting, difficulty in breathing, constipation, diarrhea, difficulty in urination. Labs WBC 7.3, hemoglobin 14, BUN 22 , creatinine 1.2. CT abdomen/pelvis resulted in no acute findings. Urinalysis positive for glucose ketones and protein. Pending General surgery consult and HIDA scan. 10/03 Patient is seen at the bedside. He is awake alert and oriented. Vitals temperature 0.7, pulse rate 60, respiratory rate 18, blood pressure 127/73, SpO2 97% on room air. No Acute events last night. He still complains of mild right upper quadrant and epigastric pain. He denies headache, dizziness, chest pain, palpitations, nausea, vomiting, difficulty in breathing, constipation, diarrhea. Patient is currently NPO. CBC and CMP unremarkable. HIDA scan NM revealed no gallbladder activity visible through 2 hour delay, findings are of concern for cystic duct obstruction and could indicate acute cholecystitis. Patient is scheduled for laparoscopic cholecystectomy today by General surgery consult. REVIEW OF SYSTEMS 12-point ROS reviewed with patient. All pertinent positives mentioned above. Otherwise negative, nonpertinent, or noncontributory. PHYSICAL EXAM GENERAL APPEARANCE: The patient is awake, alert, and oriented, in no acute cardiopulmonary distress. NEUROLOGICAL: Cranial nerves II-XII grossly intact. Motor is 5/5 in bilateral upper and lower extremities proximal to distal. No sensory deficits. HEENT: Face is symmetric. Pupils are equal and reactive. Extraocular movements are intact. NECK: Supple. No JVD. No thyromegaly. No submental, submandibular, pre- /postauricular, occipital or supraclavicular lymphadenopathy. CHEST: Normal chest expansion. No Telemetry. LUNGS: Absence of any rales, rhonchi or any wheezing. CARDIOVASCULAR: Regular. S1 and S2 normal. No appreciable rubs, murmurs or gallops. ABDOMEN: Obese. mild epigastric and right upper quadrant tenderness Soft, nontender, and nondistended. There is no rebound, voluntary guarding, or rigidity. : Deferred. No Segura. EXTREMITIES: Non-edematous and not cyanotic. No clubbing. Good capillary refill. SKIN: No skin breakdown. Vital Signs (last 8hr) Date Time Temp Pulse Resp B/P (MAP) Pulse Ox O2 Delivery O2 Flow Rate FiO2 10/03/24 08:00 97.7 60 18 127/73 97 Room Air 21 10/03/24 04:32 98.2 78 18 126/82 97 Room Air LABS: Laboratory: Test 10/03/24 10:59 10/03/24 05:33 10/03/24 04:45 10/02/24 03:20 Range/Units Whole Blood Glucose 144 H 70-110 MG/DL Bedside Glucose Comment Protocol Initiated White Blood Count 6.0 4.8-10.8 K/uL Red Blood Count 4.45 L 4.50-6.20 MIL/uL Hemoglobin 13.0 L 14.0-18.0 g/dL Hematocrit 38.1 L 42-54 % Mean Corpuscular Volume 85.6 79-99 fL Mean Corpuscular Hemoglobin 29.2 27.0-33.0 pg Mean Corpuscular Hemoglobin Concent 34.1 32.0-36.0 g/dL Red Cell Distribution Width 11.9 11.0-15.5 % Platelet Count 174 130-400 K/uL Mean Platelet Volume 10.2 7.5-10.5 fL Immature Granulocyte % (Auto) 0.3 0-1 % Neutrophils (%) (Auto) 66.6 40.0-77.0 % Lymphocytes (%) (Auto) 20.0 L 21.0-51.0 % Monocytes (%) (Auto) 8.6 3.0-13.0 % Eosinophils (%) (Auto) 4.0 0.0-8.0 % Basophils (%) (Auto) 0.5 0.0-5.0 % Neutrophils # (Auto) 4.0 1.8-7.7 K/uL Lymphocytes # (Auto) 1.2 1.0-4.8 K/uL Monocytes # (Auto) 0.5 0.1-1.0 K/uL Eosinophils # (Auto) 0.24 0.00-0.70 K/uL Basophils # (Auto) 0.03 0.00-0.20 K/uL Absolute Immature Granulocyte (auto 0.02 0-1 K/uL Nucleated Red Blood Cells 0.0 0.0-0.19 % Sodium Level 138 136-145 mmol/L Potassium Level 4.1 3.5-5.1 mmol/L Chloride Level 102 101-111 mmol/L Carbon Dioxide Level 30 21-32 mmol/L Blood Urea Nitrogen 11 7-18 mg/dL Creatinine 1.1 0.5-1.3 mg/dL Glomerular Filtration Rate Calc 79 >90 mL/min Random Glucose 158 H 70-105 mg/dL Total Calcium 8.4 L 8.5-10.1 mg/dL Phosphorus Level 3.4 2.5-4.9 mg/dL Magnesium Level 1.90 1.80-2.40 mg/dL Total Bilirubin 0.6 0.2-1.0 mg/dL Aspartate Amino Transf (AST/SGOT) 18 10-37 U/L Alanine Aminotransferase (ALT/SGPT) 34 12-78 U/L Alkaline Phosphatase 69 50-136 U/L Total Protein 5.9 L 6.0-8.3 g/dL Albumin 3.2 L 3.5-5.0 g/dL Urine Color YELLOW YELLOW Urine Appearance CLEAR CLEAR Urine pH 5.5 5.0-8.0 Urine Specific [place] 1.040 H 1.001-1.031 Urine Protein 50 H NEGATIVE mg/dL Urine Glucose (UA) 30 H NEGATIVE mg/dL Urine Ketones 5 H NEGATIVE mg/dL Urine Occult Blood NEGATIVE NEGATIVE Urine Nitrate NEGATIVE NEGATIVE Urine Bilirubin NEGATIVE NEGATIVE mg/dL Urine Urobilinogen 2.0 H 0.2-1.0 mg/dL Urine Leukocyte Esterase NEGATIVE NEGATIVE Mike/uL Urine RBC 0-1 0-1 /HPF Urine WBC 0-1 0-1 /HPF Urine Squamous Epithelial Cells RARE 0-2 /HPF Urine Bacteria RARE None Seen /HPF Urine Hyaline Casts 2-5 H 0-1 /LPF /LPF Test 10/02/24 02:09 Range/Units Total Creatine Kinase 197 # 21-232 U/L Troponin I High Sensitivity 10 4-75 ng/L Amylase Level 33 25-115 U/L Lipase 23 16-77 U/L Current Medications Medications (Trade) Dose Ordered Sig/Marta Route PRN Reason Start Time Stop Time Status Last Admin Dose Admin Acetaminophen (TYLenol 325MG TAB) 650 mg Q6H PRN PO FEVER/MILD PAIN LEVEL 1-3 10/02/24 05:00 11/01/24 04:59 10/03/24 02:13 650 MG Acetaminophen (TYLenol 650MG SUPPOSITORY) 650 mg Q6H PRN RC FEVER / MILD PAIN 1-3 IF NPO 10/02/24 05:00 11/01/24 04:59 Dextrose (D50w) 50 ml AD PRN IV HYPOGLYCEMIA PROTOCOL 10/02/24 06:30 11/01/24 06:29 Docusate Sodium (COLace 100MG CAP) 100 mg BID PRN PO c 10/02/24 05:00 11/01/24 04:59 Glucagon (Glucagon 1mg Kit) 1 mg AD PRN IM HYPOGLYCEMIA PROTOCOL 10/02/24 06:30 11/01/24 06:29 Hydralazine HCl (APRESOLine 20MG INJ) 10 mg Q2H PRN IV SBP GREATER THAN 160 10/02/24 05:00 11/01/24 04:59 Hydromorphone HCl (DiLAUDid 1MG INJ) 0.5 mg Q4H PRN IVP SEVERE PAIN (7-10) 10/02/24 05:00 10/07/24 04:59 10/02/24 20:02 0.5 MG Insulin Human Regular (humuLIN R 100 UNIT/ML 3ML) INSULIN SLIDING SCAL... ACHS SQ 10/02/24 07:30 11/01/24 07:29 Lactulose (Constulose 20gm/ 30ml Udcup) 20 gm Q6H PRN PO CONSTIPATION 10/02/24 05:00 11/01/24 04:59 Magnesium Sulfate 50 ml @ 0 mls/hr PROTOCOL PRN IV MAGNESIUM PROTOCOL 10/02/24 06:30 11/01/24 06:29 Morphine Sulfate (morPHINE 2MG SYG) 2 mg Q4H PRN IM MODERATE PAIN (4-6) 10/02/24 05:30 10/09/24 05:29 Ondansetron HCl (zoFRAN 4MG INJ) 4 mg Q6H PRN IVP NAUSEA/VOMITING 10/02/24 05:00 11/01/24 04:59 10/02/24 20:02 4 MG Pantoprazole Sodium (PROTonix 40MG INJ) 40 mg BID IVP 10/02/24 09:00 11/01/24 08:59 10/03/24 10:23 40 MG Piperacillin Sod/ Tazobactam Sod (Zosyn 3.375gm+NS 50ml) 3.375 gm Q8H IVPB 10/02/24 06:00 10/12/24 05:59 10/03/24 05:32 3.375 GM Potassium Chloride 100 ml @ 100 mls/hr AD PRN IV POTASSIUM PROTOCOL 10/02/24 06:30 11/01/24 06:29 Sodium Chloride 1,000 ml @ 75 mls/hr [id number] IV 10/02/24 06:00 11/01/24 05:59 10/03/24 08:33 75 MLS/HR Sodium Chloride (NS 50ml) 50 ml AD IV 10/02/24 06:00 10/02/24 05:51 DC Temazepam (restORIL 15 MG CAP) 15 mg HS PRN PO INSOMNIA/SLEEP 10/02/24 05:00 11/01/24 04:59 DIAGNOSTICS / RADIOLOGY: PROCEDURE: HIDA EF - NM HIDA WITH EF/CCK NM HIDA WITH EF/CCK REASON: Abdomial pain, Suspected cholecystitis COMPARISON: None TECHNIQUE: Images are obtained following administration of 7 mCi technetium 99m Choletec. FINDINGS: There is prompt hepatic parenchymal uptake. There is prompt excretion into the common duct and small bowel. There is no gallbladder activity visible through the 1 hour image. 2 hour delayed exam shows near complete clearing of hepatic activity with no gallbladder activity seen. IMPRESSION: 1. No gallbladder activity visible through 2 hour delay, findings are of concern for cystic duct obstruction and could indicate acute cholecystitis. ASSESSMENT: Acute cholecystitis, POA Acute dehydration, POA Acute kidney injury, GFR 71, improved Diabetes mellitus with hyperglycemia, Ketonuria, POA Proteinuria, POA Uncontrolled hypertension Obesity, BMI 33 PLAN: Patient is currently NPO Scheduled for laparoscopic cholecystectomy surgery today Follow up on GI consult Gentle IV hydration Continue Zosyn 3.375 mg IV Q 8hours. Continue P.r.n. medications for: Pain management, nausea, vomiting, constipation, hypertension. Monitor electrolytes and treat accordingly. Glucometer checks a.c. and HS with insulin regular sliding scale. Blood pressure checks every 4 hours and as needed. Continue DVT and GI prophylaxis: SCDs and Protonix. GEORGIA GUERRERO MD Oct 03, 2024 11:21
[2024-10-03 11:37] VITALS: BP 142/79; PULSE 66; RESP 16; TEMP 98.8
--- NOTE | 2024-10-03 14:44 | NUR ---
DCP PATIENT IS INDEPENDENT PRIOR TO ADMISSION, LIVES AT HOME WITH GIRLFRIEND. FEELS SAFE TO GO BACK HOME, ARRANGES OWN NEEDS, PT STILL CURRENTLY WORK AND DRIVE. GF ABLE TO ASSIST WITH TRANSPORTATION NECESSARY. DC PLAN TO HOME ONCE STABLE. CM TO CONTINUE TO FOLLOW UP. Addendum: 10/03/24 at 1446 by PAM LYLES LVN CM Amended: Links added.
[2024-10-03 16:00] VITALS: BP 144/82; PULSE 65; RESP 16; TEMP 98.6
--- NOTE | 2024-10-03 18:17 | CONS ---
GASTROENTEROLOGY CONSULTATION NOTE Date of Consultation: Oct 03, 2024 Time of Consultation: 18:17 History of Present Illness: This is a 54-year-old male with past medical history of morbid obesity, diabetes, hypertension who presented due to abdominal pain. Imaging revealing no acute findings. HIDA scan was concerning for cystic duct obstruction or acute cholecystitis. Patient is being followed by general surgery with plan for cholecystectomy. Review of Systems: CONSTITUTIONAL: No malaise or change in sensation of wellbeing. ENMT: No rhinorrhea, otorrhea, sinus pain, ear ache. CARDIOVASCULAR: No angina, palpitations, orthopnea or paroxysmal dyspnea. RESPIRATORY: No SOB. GASTROINTESTINAL: No abdominal pain, nausea, vomiting, diarrhea, hematemesis, melena or change in the patient's habitual bowel movements consistency/number. GENITOURINARY: No dysuria, hematuria or change in bladder continence. MUSCULOSKELETAL: No new muscle pain or decrease in muscular strength. No new joint swelling, redness or tenderness. SKIN: No new rash. Past Medical History: [ ] Past Surgical History: [ ] Past Social History: [ ] Family History: [ ] Coded Allergies: clindamycin (Unverified Allergy, Unknown, 06/06/24) Physical Exam: GEN: Awake, alert, oriented in person, time and place, and in no acute distress. HEENT: No sinus tenderness. Tympanic membranes were not examined. No rhinorrhea. Oral pharyngeal mucosa is pink, moist and within normal limits. Neck is supple with no cervical lymphadenopathy, thyromegaly or JVD. CHEST: Inspection, palpation and percussion of the chest were unremarkable. Lung auscultation revealed normal breath sounds bilaterally. CARDIAC: PMI is within normal limits. Heart sounds are regular. Normal S1, S2. No gallop or murmur. ABD: Soft, non-tender and not distended. No peritoneal signs on palpation. No organomegaly. Normal bowel sounds. EXT: No cyanosis or clubbing. No edema. SKIN: Intact. No rashes. JOINTS: No evidence of synovitis or acute arthritis. NEURO: Alert and oriented to name, place and person. Cranial nerve examination is unremarkable. No focal motor deficits. Normal speech. Gait is normal. Strength is normal. Vital Sign (Last 24 Hours) 10/03/24 10/03/24 08:00 16:00 Temp 98.6 Pulse 65 Resp 16 B/P (MAP) 144/82 Pulse Ox 95 O2 Delivery Room Air O2 Flow Rate 0 FiO2 21 Intake & Output (last 24hrs) 10/02/24 10/02/24 10/03/24 15:00 23:00 07:00 Intake Total 0 ml 1000.0 ml Balance 0 ml 1000.0 ml Laboratory: [ ] Laboratory: Test 10/03/24 10:59 10/03/24 05:33 10/03/24 04:45 10/02/24 03:20 Range/Units Whole Blood Glucose 144 H 70-110 MG/DL Bedside Glucose Comment Protocol Initiated White Blood Count 6.0 4.8-10.8 K/uL Red Blood Count 4.45 L 4.50-6.20 MIL/uL Hemoglobin 13.0 L 14.0-18.0 g/dL Hematocrit 38.1 L 42-54 % Mean Corpuscular Volume 85.6 79-99 fL Mean Corpuscular Hemoglobin 29.2 27.0-33.0 pg Mean Corpuscular Hemoglobin Concent 34.1 32.0-36.0 g/dL Red Cell Distribution Width 11.9 11.0-15.5 % Platelet Count 174 130-400 K/uL Mean Platelet Volume 10.2 7.5-10.5 fL Immature Granulocyte % (Auto) 0.3 0-1 % Neutrophils (%) (Auto) 66.6 40.0-77.0 % Lymphocytes (%) (Auto) 20.0 L 21.0-51.0 % Monocytes (%) (Auto) 8.6 3.0-13.0 % Eosinophils (%) (Auto) 4.0 0.0-8.0 % Basophils (%) (Auto) 0.5 0.0-5.0 % Neutrophils # (Auto) 4.0 1.8-7.7 K/uL Lymphocytes # (Auto) 1.2 1.0-4.8 K/uL Monocytes # (Auto) 0.5 0.1-1.0 K/uL Eosinophils # (Auto) 0.24 0.00-0.70 K/uL Basophils # (Auto) 0.03 0.00-0.20 K/uL Absolute Immature Granulocyte (auto 0.02 0-1 K/uL Nucleated Red Blood Cells 0.0 0.0-0.19 % Sodium Level 138 136-145 mmol/L Potassium Level 4.1 3.5-5.1 mmol/L Chloride Level 102 101-111 mmol/L Carbon Dioxide Level 30 21-32 mmol/L Blood Urea Nitrogen 11 7-18 mg/dL Creatinine 1.1 0.5-1.3 mg/dL Glomerular Filtration Rate Calc 79 >90 mL/min Random Glucose 158 H 70-105 mg/dL Total Calcium 8.4 L 8.5-10.1 mg/dL Phosphorus Level 3.4 2.5-4.9 mg/dL Magnesium Level 1.90 1.80-2.40 mg/dL Total Bilirubin 0.6 0.2-1.0 mg/dL Aspartate Amino Transf (AST/SGOT) 18 10-37 U/L Alanine Aminotransferase (ALT/SGPT) 34 12-78 U/L Alkaline Phosphatase 69 50-136 U/L Total Protein 5.9 L 6.0-8.3 g/dL Albumin 3.2 L 3.5-5.0 g/dL Urine Color YELLOW YELLOW Urine Appearance CLEAR CLEAR Urine pH 5.5 5.0-8.0 Urine Specific [place] 1.040 H 1.001-1.031 Urine Protein 50 H NEGATIVE mg/dL Urine Glucose (UA) 30 H NEGATIVE mg/dL Urine Ketones 5 H NEGATIVE mg/dL Urine Occult Blood NEGATIVE NEGATIVE Urine Nitrate NEGATIVE NEGATIVE Urine Bilirubin NEGATIVE NEGATIVE mg/dL Urine Urobilinogen 2.0 H 0.2-1.0 mg/dL Urine Leukocyte Esterase NEGATIVE NEGATIVE Mike/uL Urine RBC 0-1 0-1 /HPF Urine WBC 0-1 0-1 /HPF Urine Squamous Epithelial Cells RARE 0-2 /HPF Urine Bacteria RARE None Seen /HPF Urine Hyaline Casts 2-5 H 0-1 /LPF /LPF Test 10/02/24 02:09 Range/Units Total Creatine Kinase 197 # 21-232 U/L Troponin I High Sensitivity 10 4-75 ng/L Amylase Level 33 25-115 U/L Lipase 23 16-77 U/L Current Medications Medications (Trade) Dose Ordered Sig/Marta Route PRN Reason Start Time Stop Time Status Last Admin Dose Admin Acetaminophen (TYLenol 325MG TAB) 650 mg Q6H PRN PO FEVER/MILD PAIN LEVEL 1-3 10/02/24 05:00 11/01/24 04:59 10/03/24 02:13 650 MG Acetaminophen (TYLenol 650MG SUPPOSITORY) 650 mg Q6H PRN RC FEVER / MILD PAIN 1-3 IF NPO 10/02/24 05:00 11/01/24 04:59 Dextrose (D50w) 50 ml AD PRN IV HYPOGLYCEMIA PROTOCOL 10/02/24 06:30 11/01/24 06:29 Docusate Sodium (COLace 100MG CAP) 100 mg BID PRN PO c 10/02/24 05:00 11/01/24 04:59 Glucagon (Glucagon 1mg Kit) 1 mg AD PRN IM HYPOGLYCEMIA PROTOCOL 10/02/24 06:30 11/01/24 06:29 Hydralazine HCl (APRESOLine 20MG INJ) 10 mg Q2H PRN IV SBP GREATER THAN 160 10/02/24 05:00 11/01/24 04:59 Hydromorphone HCl (DiLAUDid 1MG INJ) 0.5 mg Q4H PRN IVP SEVERE PAIN (7-10) 10/02/24 05:00 10/07/24 04:59 10/02/24 20:02 0.5 MG Insulin Human Regular (humuLIN R 100 UNIT/ML 3ML) INSULIN SLIDING SCAL... ACHS SQ 10/02/24 07:30 11/01/24 07:29 Lactulose (Constulose 20gm/ 30ml Udcup) 20 gm Q6H PRN PO CONSTIPATION 10/02/24 05:00 11/01/24 04:59 Magnesium Sulfate 50 ml @ 0 mls/hr PROTOCOL PRN IV MAGNESIUM PROTOCOL 10/02/24 06:30 11/01/24 06:29 Morphine Sulfate (morPHINE 2MG SYG) 2 mg Q4H PRN IM MODERATE PAIN (4-6) 10/02/24 05:30 10/09/24 05:29 Ondansetron HCl (zoFRAN 4MG INJ) 4 mg Q6H PRN IVP NAUSEA/VOMITING 10/02/24 05:00 11/01/24 04:59 10/02/24 20:02 4 MG Pantoprazole Sodium (PROTonix 40MG INJ) 40 mg BID IVP 10/02/24 09:00 11/01/24 08:59 10/03/24 10:23 40 MG Piperacillin Sod/ Tazobactam Sod (Zosyn 3.375gm+NS 50ml) 3.375 gm Q8H IVPB 10/02/24 06:00 10/12/24 05:59 10/03/24 14:30 3.375 GM Potassium Chloride 100 ml @ 100 mls/hr AD PRN IV POTASSIUM PROTOCOL 10/02/24 06:30 11/01/24 06:29 Sodium Chloride 1,000 ml @ 75 mls/hr [id number] IV 10/02/24 06:00 11/01/24 05:59 10/03/24 08:33 75 MLS/HR Sodium Chloride (NS 50ml) 50 ml AD IV 10/02/24 06:00 10/02/24 05:51 DC Temazepam (restORIL 15 MG CAP) 15 mg HS PRN PO INSOMNIA/SLEEP 10/02/24 05:00 11/01/24 04:59 Diagnostics / Radiology: [COPY/PASTE HERE IF NO REPORTS PLEASE DELETE SECTION] Assessment: Acute cholecystitis Plan: Follow surgical recommendations Continue GI prophylaxis Avoid NSAIDs Antireflux measures Monitor H&H and transfuse as needed Call with questions, concerns or change in clinical status Patient to follow-up at clinic post discharge Thank you for this consult JENI RUIZ [employer] MACH[employer] OPERATOR Oct 03, 2024 18:17
--- NOTE | 2024-10-03 19:41 | PN ---
GENERAL SURGERY PROGRESS NOTE DATE OF SERVICE: Oct 03, 2024 TIME OF SERVICE: 19:40 No new issues PROBLEM LISTS: [ ] INTERVAL HISTORY: [ ] PHYSICAL EXAMINATION: GENERAL: [Patient is lying comfortably in bed, not in any obvious distress.] HEAD: [Normal with no signs of head trauma.] EYES: [Not pale not jaundiced afebrile to touch.] ENT: [ Normal.] NECK: [Supple,no tenderness,no lymphadenopathy,no masses,no thyromegaly ,no bruits, no JVD.] LUNGS: [Clear breath sounds bilaterally. No wheezes, rales, or rhonchi.] HEART: [Regular rate and rhythm. Normal S1 and S2, without murmurs, rub or gallop.] VASC: [No edema. Peripheral pulses normal and equal in all extremities.] ABD: [Bowel sounds present,soft, epigastric tenderness no masses, no organomegaly.] : [Normal, no suprapubic tenderness.] LYMPH: [No lymphadenopathy noted.] EXT: [ Warm soft, non tender.] SKIN: [ No rashes or lesions.] NEURO: [ Awake Alert and oriented x3.] LABORATORY: [ ] Hematology Labs: Test 10/03/24 04:45 Range/Units White Blood Count 6.0 4.8-10.8 K/uL Red Blood Count 4.45 L 4.50-6.20 MIL/uL Hemoglobin 13.0 L 14.0-18.0 g/dL Hematocrit 38.1 L 42-54 % Mean Corpuscular Volume 85.6 79-99 fL Mean Corpuscular Hemoglobin 29.2 27.0-33.0 pg Mean Corpuscular Hemoglobin Concent 34.1 32.0-36.0 g/dL Red Cell Distribution Width 11.9 11.0-15.5 % Platelet Count 174 130-400 K/uL Mean Platelet Volume 10.2 7.5-10.5 fL Immature Granulocyte % (Auto) 0.3 0-1 % Neutrophils (%) (Auto) 66.6 40.0-77.0 % Lymphocytes (%) (Auto) 20.0 L 21.0-51.0 % Monocytes (%) (Auto) 8.6 3.0-13.0 % Eosinophils (%) (Auto) 4.0 0.0-8.0 % Basophils (%) (Auto) 0.5 0.0-5.0 % Neutrophils # (Auto) 4.0 1.8-7.7 K/uL Lymphocytes # (Auto) 1.2 1.0-4.8 K/uL Monocytes # (Auto) 0.5 0.1-1.0 K/uL Eosinophils # (Auto) 0.24 0.00-0.70 K/uL Basophils # (Auto) 0.03 0.00-0.20 K/uL Absolute Immature Granulocyte (auto 0.02 0-1 K/uL Nucleated Red Blood Cells 0.0 0.0-0.19 % Chemistry Labs: Test 10/03/24 10:59 10/03/24 05:33 10/03/24 04:45 10/02/24 02:09 Range/Units Whole Blood Glucose 144 H 70-110 MG/DL Bedside Glucose Comment Protocol Initiated Sodium Level 138 136-145 mmol/L Potassium Level 4.1 3.5-5.1 mmol/L Chloride Level 102 101-111 mmol/L Carbon Dioxide Level 30 21-32 mmol/L Blood Urea Nitrogen 11 7-18 mg/dL Creatinine 1.1 0.5-1.3 mg/dL Glomerular Filtration Rate Calc 79 >90 mL/min Random Glucose 158 H 70-105 mg/dL Total Calcium 8.4 L 8.5-10.1 mg/dL Phosphorus Level 3.4 2.5-4.9 mg/dL Magnesium Level 1.90 1.80-2.40 mg/dL Total Bilirubin 0.6 0.2-1.0 mg/dL Aspartate Amino Transf (AST/SGOT) 18 10-37 U/L Alanine Aminotransferase (ALT/SGPT) 34 12-78 U/L Alkaline Phosphatase 69 50-136 U/L Total Protein 5.9 L 6.0-8.3 g/dL Albumin 3.2 L 3.5-5.0 g/dL Total Creatine Kinase 197 # 21-232 U/L Troponin I High Sensitivity 10 4-75 ng/L Amylase Level 33 25-115 U/L Lipase 23 16-77 U/L Does not rule out been able to hold it will have been able to do at least one DIAGNOSTICS / RADIOLOGY: [Copy/Paste Echos/Imaging Report here] ASSESSMENT: [] Abdominal pain Likely biliary colic versus acute cholecystitis Recurrent PLAN: [] OR in a.m. SIYANBADE,OYETUNDE O MD Oct 03, 2024 19:41
[2024-10-03 20:00] VITALS: BP 149/78; PULSE 66; RESP 17; TEMP 98.1; O2SAT 94
[2024-10-03] MEDS ORDERED: hydroMORPHone 0.5 MG SYG (0.5MG/0.5ML) IVP PRN (21:00)
--- NOTE | 2024-10-03 21:00 | NUR ---
DIET: PT RETURNED FROM [facility] ROBOTIC/LAP CHOLECYSTECTOMY WAS NOT PERFORMED AND TO BE POSTPONED UNTIL AM. PT SENT HIS GF TO BRING HIM WHATABURGER. PT WAS ADVISED NOT TO EAT SUCH A FATTY MEAL AND OFFERED CLEAR LIQUID DIET INSTEAD. PT UPSET SURGERY WAS POSTPONED AND STATES HE IS VERY HUNGRY. PT ATE BURGER AND SOME FRIES. PT INSTRUCTED NOT TO EAT OR DRINK ANYTHING AFTER MIDNIGHT FOR SURGERY IN AM.
[2024-10-04] VITALS (27 sets, daily range): BP systolic 108–154; BP diastolic 57–86; PULSE 57–104; RESP 14–18; TEMP 97.9–98.5; O2SAT 94–96
[2024-10-04 04:50] LABS: BASOPHILS # (AUTO) 0.04 K/uL (0.00-0.20); BASOPHILS % (AUTO) 0.7 % (0.0-5.0); EOSINOPHILS # (AUTO) 0.28 K/uL (0.00-0.70); EOSINOPHILS % (AUTO) 4.8 % (0.0-8.0); HEMATOCRIT 39.6 % (42-54); IMMATURE GRANULOCYTE ABSOLUTE 0.03 K/uL (0-1); LYMPHOCYTES # (AUTO) 1.4 K/uL (1.0-4.8); LYMPHOCYTES % (AUTO) 23.3 % (21.0-51.0); MEAN CORPUSCULAR HEMOGLOBIN 29.2 pg (27.0-33.0); MEAN CORPUSCULAR HGB CONC 34.3 g/dL (32.0-36.0); MONOCYTES # (AUTO) 0.5 K/uL (0.1-1.0); MONOCYTES % (AUTO) 8.3 % (3.0-13.0); NEUTROPHILS # (AUTO) 3.7 K/uL (1.8-7.7); NEUTROPHILS % (AUTO) 62.4 % (40.0-77.0); PLATELET COUNT (AUTO) 178 K/uL (130-400); RED BLOOD CELL COUNT(AUTO) 4.66 MIL/uL (4.50-6.20); RED CELL DISTRIBUTION WIDTH 11.8 % (11.0-15.5); WHITE BLOOD COUNT (AUTO) 5.9 K/uL (4.8-10.8)
[2024-10-04 05:13] LABS: BILIRUBIN,TOTAL 0.4 mg/dL (0.2-1.0); CREATININE 1.1 mg/dL (0.5-1.3); MAGNESIUM 1.8 mg/dL (1.80-2.40); TOTAL PROTEIN, SERUM 6.3 g/dL (6.0-8.3)
[2024-10-04] MEDS: INDOCYANINE GREEN 25 MG VIAL IJ ONE ×2 (10:01→10:30)
[2024-10-04] MEDS: acetaMINOPHEN 100 ML ONE (10:02)
[2024-10-04] MEDS ORDERED: BUPIvacaine/PF 0.25% 30ML VIAL IJ ONE (10:03)
[2024-10-04] MEDS ORDERED: LIDOCAINE 1%-EPI 1:100,000 20 ML VIAL ONE (10:03)
[2024-10-04] MEDS: 0.9%NACL 1000ML 1,000 ML IV ONE (10:05)
[2024-10-04] MEDS ORDERED: ketaMINE 50MG/ML SYRINGE 50 MG/ML DISP.SYRIN ONE (10:17)
[2024-10-04] MEDS ORDERED: proPOFol 10 MG/ML 20ML VIAL IV ONE (10:21)
[2024-10-04] MEDS ORDERED: rocuRONium bROMide 10MG/1ML 5ML VL ONE (10:21)
[2024-10-04] MEDS ORDERED: MIDAZOLAM HCL 1 MG/ML 2ML VIAL ONE (10:21)
[2024-10-04] MEDS ORDERED: ondanSETRON 4MG INJ ONE (10:21)
[2024-10-04] MEDS ORDERED: FENTanyl CITRate PF 50 MCG/1 ML 2ML VIAL ONE (10:22)
[2024-10-04] MEDS ORDERED: phenylEPHRINE HCL 10 MG/ML 1ML VIAL IV ONE (10:22)
[2024-10-04] MEDS ORDERED: LIDOCAINE PF 100MG/5ML (2%) SYRINGE 5ML ONE (10:22)
[2024-10-04] MEDS ORDERED: NEOSTIGMINE METHYLSULFATE 1MG/ML IV ONE (10:26)
[2024-10-04] MEDS ORDERED: GLYCOPYRROLATE 0.2 MG/ML 5 ML VIAL ONE (10:26)
[2024-10-04] MEDS ORDERED: ePHEDrine SULFate 50 MG/ML AMPULE ONE (11:04)
[2024-10-04] MEDS: MEPERIDINE-PF 25 MG/ML SYG ONE ×2 (12:14→12:22)
[2024-10-04] MEDS: FENTanyl CITRate PF 50 MCG/1 ML 2ML VIAL ONE (12:14)
[2024-10-04] MEDS: oxyCODONE/aceTAMIN 5/325MG TAB PO PRN (13:55)
--- NOTE | 2024-10-04 14:43 | PN ---
GASTROENTEROLOGY PROGRESS NOTE Date of Visit: Oct 04, 2024 Time of Visit: 14:43 Events / Notes: No acute events overnight. Patient s/p lap amber. Review of Systems: CONSTITUTIONAL: No malaise or change in sensation of wellbeing. ENMT: No rhinorrhea, otorrhea, sinus pain, ear ache. CARDIOVASCULAR: No angina, palpitations, orthopnea or paroxysmal dyspnea. RESPIRATORY: No SOB. GASTROINTESTINAL: No abdominal pain, nausea, vomiting, diarrhea, hematemesis, melena or change in the patient's habitual bowel movements consistency/number. GENITOURINARY: No dysuria, hematuria or change in bladder continence. MUSCULOSKELETAL: No new muscle pain or decrease in muscular strength. No new joint swelling, redness or tenderness. SKIN: No new rash. Physical Exam: GEN: Awake, alert, oriented in person, time and place, and in no acute distress. HEENT: No sinus tenderness. Tympanic membranes were not examined. No rhinorrhea. Oral pharyngeal mucosa is pink, moist and within normal limits. Neck is supple with no cervical lymphadenopathy, thyromegaly or JVD. CHEST: Inspection, palpation and percussion of the chest were unremarkable. Lung auscultation revealed normal breath sounds bilaterally. CARDIAC: PMI is within normal limits. Heart sounds are regular. Normal S1, S2. No gallop or murmur. ABD: Soft, non-tender and not distended. No peritoneal signs on palpation. No organomegaly. Normal bowel sounds. EXT: No cyanosis or clubbing. No edema. SKIN: Intact. No rashes. JOINTS: No evidence of synovitis or acute arthritis. NEURO: Alert and oriented to name, place and person. Cranial nerve examination is unremarkable. No focal motor deficits. Normal speech. Gait is normal. Strengt h is normal. Vital Signs (last 8hr) Date Time Temp Pulse Resp B/P (MAP) Pulse Ox O2 Delivery O2 Flow Rate FiO2 10/04/24 12:50 98.2 79 17 154/80 95 Nasal Cannula 2.0 10/04/24 12:45 76 16 147/81 94 Nasal Cannula 2.0 10/04/24 12:40 84 16 149/86 93 Room Air 10/04/24 12:35 83 15 127/82 97 Room Air 10/04/24 12:30 76 16 131/78 100 Room Air 10/04/24 12:25 69 15 142/80 100 Nonrebreathing Mask 10.0 10/04/24 12:20 75 17 149/84 100 Nonrebreathing Mask 10.0 10/04/24 12:15 66 16 146/79 100 Nonrebreathing Mask 10.0 10/04/24 12:10 73 14 146/80 100 Nonrebreathing Mask 10.0 10/04/24 12:05 70 15 152/86 100 Nonrebreathing Mask 10.0 10/04/24 12:00 97.9 76 14 153/86 100 Nonrebreathing Mask 10.0 10/04/24 09:30 98.2 60 17 131/80 96 Room Air 0.0 21 10/04/24 08:37 98.2 60 17 131/80 96 Room Air 21 10/04/24 07:30 96 Room Air* 0 21 Laboratory: [ ] Laboratory: Test 10/04/24 12:27 10/04/24 04:33 10/03/24 05:33 10/03/24 04:45 Range/Units Whole Blood Glucose 179 H 70-110 MG/DL White Blood Count 5.9 4.8-10.8 K/uL Red Blood Count 4.66 4.50-6.20 MIL/uL Hemoglobin 13.6 L 14.0-18.0 g/dL Hematocrit 39.6 L 42-54 % Mean Corpuscular Volume 85.0 79-99 fL Mean Corpuscular Hemoglobin 29.2 27.0-33.0 pg Mean Corpuscular Hemoglobin Concent 34.3 32.0-36.0 g/dL Red Cell Distribution Width 11.8 11.0-15.5 % Platelet Count 178 130-400 K/uL Mean Platelet Volume 9.8 7.5-10.5 fL Immature Granulocyte % (Auto) 0.5 0-1 % Neutrophils (%) (Auto) 62.4 40.0-77.0 % Lymphocytes (%) (Auto) 23.3 21.0-51.0 % Monocytes (%) (Auto) 8.3 3.0-13.0 % Eosinophils (%) (Auto) 4.8 0.0-8.0 % Basophils (%) (Auto) 0.7 0.0-5.0 % Neutrophils # (Auto) 3.7 1.8-7.7 K/uL Lymphocytes # (Auto) 1.4 1.0-4.8 K/uL Monocytes # (Auto) 0.5 0.1-1.0 K/uL Eosinophils # (Auto) 0.28 0.00-0.70 K/uL Basophils # (Auto) 0.04 0.00-0.20 K/uL Absolute Immature Granulocyte (auto 0.03 0-1 K/uL Nucleated Red Blood Cells 0.0 0.0-0.19 % Sodium Level 135 L 136-145 mmol/L Potassium Level 4.0 3.5-5.1 mmol/L Chloride Level 102 101-111 mmol/L Carbon Dioxide Level 32 21-32 mmol/L Blood Urea Nitrogen 11 7-18 mg/dL Creatinine 1.1 0.5-1.3 mg/dL Glomerular Filtration Rate Calc 79 >90 mL/min Random Glucose 164 H 70-105 mg/dL Total Calcium 8.3 L 8.5-10.1 mg/dL Magnesium Level 1.80 1.80-2.40 mg/dL Total Bilirubin 0.4 # 0.2-1.0 mg/dL Aspartate Amino Transf (AST/SGOT) 19 10-37 U/L Alanine Aminotransferase (ALT/SGPT) 30 12-78 U/L Alkaline Phosphatase 66 50-136 U/L Total Protein 6.3 6.0-8.3 g/dL Albumin 3.0 L 3.5-5.0 g/dL Bedside Glucose Comment Protocol Initiated Phosphorus Level 3.4 2.5-4.9 mg/dL Current Medications Medications (Trade) Dose Ordered Sig/Marta Route PRN Reason Start Time Stop Time Status Last Admin Dose Admin Acetaminophen (TYLenol 325MG TAB) 650 mg Q6H PRN PO FEVER/MILD PAIN LEVEL 1-3 10/02/24 05:00 11/01/24 04:59 10/03/24 02:13 650 MG Acetaminophen (TYLenol 650MG SUPPOSITORY) 650 mg Q6H PRN RC FEVER / MILD PAIN 1-3 IF NPO 10/02/24 05:00 11/01/24 04:59 Dextrose (D50w) 50 ml AD PRN IV HYPOGLYCEMIA PROTOCOL 10/02/24 06:30 11/01/24 06:29 Docusate Sodium (COLace 100MG CAP) 100 mg BID PRN PO c 10/02/24 05:00 11/01/24 04:59 Glucagon (Glucagon 1mg Kit) 1 mg AD PRN IM HYPOGLYCEMIA PROTOCOL 10/02/24 06:30 11/01/24 06:29 Hydralazine HCl (APRESOLine 20MG INJ) 10 mg Q2H PRN IV SBP GREATER THAN 160 10/02/24 05:00 11/01/24 04:59 Hydromorphone HCl (DiLAUDid 0.5MG INJ) 0.5 mg Q4H PRN IVP SEVERE PAIN (7-10) 10/03/24 21:00 10/04/24 13:11 DC Hydromorphone HCl (DiLAUDid 1MG INJ) 0.5 mg Q4H PRN IVP SEVERE PAIN (7-10) 10/02/24 05:00 10/03/24 20:41 DC 10/02/24 20:02 0.5 MG Hydromorphone HCl (DiLAUDid 1MG INJ) 1 mg Q3H3 PRN IVP PAIN LEVEL 7 TO 10 10/04/24 13:00 10/09/24 12:59 Insulin Human Regular (humuLIN R 100 UNIT/ML 3ML) INSULIN SLIDING SCAL... ACHS SQ 10/02/24 07:30 11/01/24 07:29 Lactulose (Constulose 20gm/ 30ml Udcup) 20 gm Q6H PRN PO CONSTIPATION 10/02/24 05:00 11/01/24 04:59 Magnesium Sulfate 50 ml @ 0 mls/hr PROTOCOL PRN IV MAGNESIUM PROTOCOL 10/02/24 06:30 11/01/24 06:29 Morphine Sulfate (morPHINE 2MG SYG) 2 mg Q4H PRN IM MODERATE PAIN (4-6) 10/02/24 05:30 10/04/24 13:11 DC Ondansetron HCl (zoFRAN 4MG INJ) 4 mg Q6H PRN IVP NAUSEA/VOMITING 10/02/24 05:00 11/01/24 04:59 10/02/24 20:02 4 MG Oxycodone/ Acetaminophen (perCOCET) 1 tab Q4PRN PRN PO PAIN LEVEL 4 TO 6 10/04/24 13:00 10/11/24 12:59 Pantoprazole Sodium (PROTonix 40MG INJ) 40 mg BID IVP 10/02/24 09:00 11/01/24 08:59 10/03/24 19:59 40 MG Piperacillin Sod/ Tazobactam Sod (Zosyn 3.375gm+NS 50ml) 3.375 gm Q8H IVPB 10/02/24 06:00 10/12/24 05:59 10/04/24 05:20 3.375 GM Potassium Chloride 100 ml @ 100 mls/hr AD PRN IV POTASSIUM PROTOCOL 10/02/24 06:30 11/01/24 06:29 Sodium Chloride 1,000 ml @ 75 mls/hr [id number] IV 10/02/24 06:00 11/01/24 05:59 10/03/24 22:20 75 MLS/HR Sodium Chloride (NS 50ml) 50 ml AD IV 10/02/24 06:00 10/02/24 05:51 DC Temazepam (restORIL 15 MG CAP) 15 mg HS PRN PO INSOMNIA/SLEEP 10/02/24 05:00 11/01/24 04:59 Diagnostics / Radiology: [COPY/PASTE HERE IF NO REPORTS PLEASE DELETE SECTION] Assessment: Acute cholecystitis Plan: Follow surgical recommendations Continue GI prophylaxis Avoid NSAIDs Antireflux measures Monitor H&H and transfuse as needed Call with questions, concerns or change in clinical status Patient to follow-up at clinic post discharge Thank you for this consult JENI RUIZ WELDER APPRENTICE GAS Oct 04, 2024 14:43
--- NOTE | 2024-10-04 14:58 | PN ---
[facility] PROGRESS NOTE Date of Service: Oct 04, 2024 Time of Service: 14:58 SUBJECTIVE: Patient is seen at the bedside. He is awake alert and oriented. Vitals temperature 97.7, pulse rate 70, respiratory rate 18 , blood pressure 144/73, SpO2 98% on room air. He complains of mild epigastric and right upper quadrant pain. He denies headache, dizziness, chest pain, palpitations, nausea, vomiting, difficulty in breathing, constipation, diarrhea, difficulty in urination. Labs WBC 7.3, hemoglobin 14, BUN 22 , creatinine 1.2. CT abdomen/pelvis resulted in no acute findings. Urinalysis positive for glucose ketones and protein. Pending General surgery consult and HIDA scan. 10/03 Patient is seen at the bedside. He is awake alert and oriented. Vitals temperature 0.7, pulse rate 60, respiratory rate 18, blood pressure 127/73, SpO2 97% on room air. No Acute events last night. He still complains of mild right upper quadrant and epigastric pain. He denies headache, dizziness, chest pain, palpitations, nausea, vomiting, difficulty in breathing, constipation, diarrhea. Patient is currently NPO. CBC and CMP unremarkable. HIDA scan NM revealed no gallbladder activity visible through 2 hour delay, findings are of concern for cystic duct obstruction and could indicate acute cholecystitis. Patient is scheduled for laparoscopic cholecystectomy today by General surgery consult. 10/04 Patient is seen at the bedside. He is awake alert and oriented. Vitals temperature 98.2, pulse rate 60, respiratory rate 17, blood pressure 131/80, SpO2 96% on room air. He is currently NPO. He still complains of moderate right upper quadrant and epigastric pain. He denies headache, dizziness, chest pain, palpitations, nausea, vomiting, difficulty in breathing, diarrhea. CBC, CMP are unremarkable. Magnesium, LFT levels are normal. Patient is scheduled for lap cholecystectomy today in the morning. 1:00 p.m.: Patient is back from the surgery. He is drowsy. Hemodynamically stable. He complains of moderate abdominal pain at the surgical site. REVIEW OF SYSTEMS 12-point ROS reviewed with patient. All pertinent positives mentioned above. Otherwise negative, nonpertinent, or noncontributory. PHYSICAL EXAM GENERAL APPEARANCE: The patient is awake, alert, and oriented, in no acute cardiopulmonary distress. NEUROLOGICAL: Cranial nerves II-XII grossly intact. Motor is 5/5 in bilateral upper and lower extremities proximal to distal. No sensory deficits. HEENT: Face is symmetric. Pupils are equal and reactive. Extraocular movements are intact. NECK: Supple. No JVD. No thyromegaly. No submental, submandibular, pre- /postauricular, occipital or supraclavicular lymphadenopathy. CHEST: Normal chest expansion. No Telemetry. LUNGS: Absence of any rales, rhonchi or any wheezing. CARDIOVASCULAR: Regular. S1 and S2 normal. No appreciable rubs, murmurs or gallops. ABDOMEN: Obese. Moderate right upper quadrant tenderness Soft, nontender, and nondistended. There is no rebound, voluntary guarding, or rigidity. : Deferred. No Segura. EXTREMITIES: Non-edematous and not cyanotic. No clubbing. Good capillary refill. SKIN: No skin breakdown. Vital Signs (last 8hr) Date Time Temp Pulse Resp B/P (MAP) Pulse Ox O2 Delivery O2 Flow Rate FiO2 10/04/24 12:50 98.2 79 17 154/80 95 Nasal Cannula 2.0 10/04/24 12:45 76 16 147/81 94 Nasal Cannula 2.0 10/04/24 12:40 84 16 149/86 93 Room Air 10/04/24 12:35 83 15 127/82 97 Room Air 10/04/24 12:30 76 16 131/78 100 Room Air 10/04/24 12:25 69 15 142/80 100 Nonrebreathing Mask 10.0 10/04/24 12:20 75 17 149/84 100 Nonrebreathing Mask 10.0 10/04/24 12:15 66 16 146/79 100 Nonrebreathing Mask 10.0 10/04/24 12:10 73 14 146/80 100 Nonrebreathing Mask 10.0 10/04/24 12:05 70 15 152/86 100 Nonrebreathing Mask 10.0 10/04/24 12:00 97.9 76 14 153/86 100 Nonrebreathing Mask 10.0 10/04/24 09:30 98.2 60 17 131/80 96 Room Air 0.0 21 10/04/24 08:37 98.2 60 17 131/80 96 Room Air 21 10/04/24 07:30 96 Room Air* 0 21 LABS: Laboratory: Test 10/04/24 12:27 10/04/24 04:33 10/03/24 05:33 10/03/24 04:45 Range/Units Whole Blood Glucose 179 H 70-110 MG/DL White Blood Count 5.9 4.8-10.8 K/uL Red Blood Count 4.66 4.50-6.20 MIL/uL Hemoglobin 13.6 L 14.0-18.0 g/dL Hematocrit 39.6 L 42-54 % Mean Corpuscular Volume 85.0 79-99 fL Mean Corpuscular Hemoglobin 29.2 27.0-33.0 pg Mean Corpuscular Hemoglobin Concent 34.3 32.0-36.0 g/dL Red Cell Distribution Width 11.8 11.0-15.5 % Platelet Count 178 130-400 K/uL Mean Platelet Volume 9.8 7.5-10.5 fL Immature Granulocyte % (Auto) 0.5 0-1 % Neutrophils (%) (Auto) 62.4 40.0-77.0 % Lymphocytes (%) (Auto) 23.3 21.0-51.0 % Monocytes (%) (Auto) 8.3 3.0-13.0 % Eosinophils (%) (Auto) 4.8 0.0-8.0 % Basophils (%) (Auto) 0.7 0.0-5.0 % Neutrophils # (Auto) 3.7 1.8-7.7 K/uL Lymphocytes # (Auto) 1.4 1.0-4.8 K/uL Monocytes # (Auto) 0.5 0.1-1.0 K/uL Eosinophils # (Auto) 0.28 0.00-0.70 K/uL Basophils # (Auto) 0.04 0.00-0.20 K/uL Absolute Immature Granulocyte (auto 0.03 0-1 K/uL Nucleated Red Blood Cells 0.0 0.0-0.19 % Sodium Level 135 L 136-145 mmol/L Potassium Level 4.0 3.5-5.1 mmol/L Chloride Level 102 101-111 mmol/L Carbon Dioxide Level 32 21-32 mmol/L Blood Urea Nitrogen 11 7-18 mg/dL Creatinine 1.1 0.5-1.3 mg/dL Glomerular Filtration Rate Calc 79 >90 mL/min Random Glucose 164 H 70-105 mg/dL Total Calcium 8.3 L 8.5-10.1 mg/dL Magnesium Level 1.80 1.80-2.40 mg/dL Total Bilirubin 0.4 # 0.2-1.0 mg/dL Aspartate Amino Transf (AST/SGOT) 19 10-37 U/L Alanine Aminotransferase (ALT/SGPT) 30 12-78 U/L Alkaline Phosphatase 66 50-136 U/L Total Protein 6.3 6.0-8.3 g/dL Albumin 3.0 L 3.5-5.0 g/dL Bedside Glucose Comment Protocol Initiated Phosphorus Level 3.4 2.5-4.9 mg/dL Current Medications Medications (Trade) Dose Ordered Sig/Marta Route PRN Reason Start Time Stop Time Status Last Admin Dose Admin Acetaminophen (TYLenol 325MG TAB) 650 mg Q6H PRN PO FEVER/MILD PAIN LEVEL 1-3 10/02/24 05:00 11/01/24 04:59 10/03/24 02:13 650 MG Acetaminophen (TYLenol 650MG SUPPOSITORY) 650 mg Q6H PRN RC FEVER / MILD PAIN 1-3 IF NPO 10/02/24 05:00 11/01/24 04:59 Dextrose (D50w) 50 ml AD PRN IV HYPOGLYCEMIA PROTOCOL 10/02/24 06:30 11/01/24 06:29 Docusate Sodium (COLace 100MG CAP) 100 mg BID PRN PO c 10/02/24 05:00 11/01/24 04:59 Glucagon (Glucagon 1mg Kit) 1 mg AD PRN IM HYPOGLYCEMIA PROTOCOL 10/02/24 06:30 11/01/24 06:29 Hydralazine HCl (APRESOLine 20MG INJ) 10 mg Q2H PRN IV SBP GREATER THAN 160 10/02/24 05:00 11/01/24 04:59 Hydromorphone HCl (DiLAUDid 0.5MG INJ) 0.5 mg Q4H PRN IVP SEVERE PAIN (7-10) 10/03/24 21:00 10/04/24 13:11 DC Hydromorphone HCl (DiLAUDid 1MG INJ) 0.5 mg Q4H PRN IVP SEVERE PAIN (7-10) 10/02/24 05:00 10/03/24 20:41 DC 10/02/24 20:02 0.5 MG Hydromorphone HCl (DiLAUDid 1MG INJ) 1 mg Q3H3 PRN IVP PAIN LEVEL 7 TO 10 10/04/24 13:00 10/09/24 12:59 Insulin Human Regular (humuLIN R 100 UNIT/ML 3ML) INSULIN SLIDING SCAL... ACHS SQ 10/02/24 07:30 11/01/24 07:29 Lactulose (Constulose 20gm/ 30ml Udcup) 20 gm Q6H PRN PO CONSTIPATION 10/02/24 05:00 11/01/24 04:59 Magnesium Sulfate 50 ml @ 0 mls/hr PROTOCOL PRN IV MAGNESIUM PROTOCOL 10/02/24 06:30 11/01/24 06:29 Morphine Sulfate (morPHINE 2MG SYG) 2 mg Q4H PRN IM MODERATE PAIN (4-6) 10/02/24 05:30 10/04/24 13:11 DC Ondansetron HCl (zoFRAN 4MG INJ) 4 mg Q6H PRN IVP NAUSEA/VOMITING 10/02/24 05:00 11/01/24 04:59 10/02/24 20:02 4 MG Oxycodone/ Acetaminophen (perCOCET) 1 tab Q4PRN PRN PO PAIN LEVEL 4 TO 6 10/04/24 13:00 10/11/24 12:59 Pantoprazole Sodium (PROTonix 40MG INJ) 40 mg BID IVP 10/02/24 09:00 11/01/24 08:59 10/03/24 19:59 40 MG Piperacillin Sod/ Tazobactam Sod (Zosyn 3.375gm+NS 50ml) 3.375 gm Q8H IVPB 10/02/24 06:00 10/12/24 05:59 10/04/24 05:20 3.375 GM Potassium Chloride 100 ml @ 100 mls/hr AD PRN IV POTASSIUM PROTOCOL 10/02/24 06:30 11/01/24 06:29 Sodium Chloride 1,000 ml @ 75 mls/hr [id number] IV 10/02/24 06:00 11/01/24 05:59 10/03/24 22:20 75 MLS/HR Sodium Chloride (NS 50ml) 50 ml AD IV 10/02/24 06:00 10/02/24 05:51 DC Temazepam (restORIL 15 MG CAP) 15 mg HS PRN PO INSOMNIA/SLEEP 10/02/24 05:00 11/01/24 04:59 DIAGNOSTICS / RADIOLOGY: [ ] ASSESSMENT: Acute cholecystitis POA Acute dehydration POA Acute kidney injury, GFR 71, improving Diabetes mellitus with hyperglycemia Ketonuria POA Proteinuria POA Uncontrolled hypertension Obesity, BMI 33 PLAN: Monitor for symptoms like fever, severe abdominal pain, vomiting, tachycardia, hypotension, infection or bleeding Start early ambulation within 6-8 hours Start clear liquid diet and advance diet as tolerated Start 1 mg Dilaudid q.3 p.r.n., Percocet 1 tablet q.4 p.r.n. for pain management as per general surgery consult recommendation Follow up on gastroenterology consult Gentle IV hydration Continue Zosyn 3.375 mg IV Q 8hours. Continue P.r.n. medications for: Pain management, nausea, vomiting, constipation, hypertension. Monitor electrolytes and treat accordingly. Glucometer checks a.c. and HS with insulin regular sliding scale. Blood pressure checks every 4 hours and as needed. Continue DVT and GI prophylaxis: SCDs and Protonix. Repeat CBC, CMP tomorrow a.m. ATTESTATION BY PHYSICIAN I have seen and examined the patient. I reviewed the documentation, medical decision making, and treatment plan as noted by the resident above. I agree with the findings and plan of care. Rodriguez Crystal IV, MD, PRIYANKA MD Oct 04, 2024 14:58
[2024-10-04] MEDS: hydroMORPHone 1 MG INJ IVP PRN (15:02)
--- NOTE | 2024-10-04 15:05 | NUR ---
Pain Patient reports pain in abdomen /. VSS 141/79, patient aox4. Prn iv dilaudid given for primary nurse Stephanie DORMAN per unit policy.
[2024-10-04] MEDS: MAGNESIUM 2GM PREMIX 50ML 50 ML IV PRN (18:12)
--- NOTE | 2024-10-04 22:36 | OP ---
OP Procedure: Robotic [facility] OP Procedure Note OPERATIVE PROCEDURE NOTE DATE OF SERVICE: Oct 04, 2024 PREOPERATIVE DIAGNOSIS: [ ] POSTOPERATIVE DIAGNOSIS: [ ] PROCEDURES PREFORMED: 1. Robotic Cholecystectomy SURGEON: Tony Paige MD ANESTHESIA: General. ESTIMATED BLOOD LOSS: Minimal. SPECIMEN(S) REMOVED: Gallbladder. FINDINGS: Very enlarged tense gallbladder moderate right upper quadrant inflammatory adhesions COMPLICATIONS: None. DESCRIPTION OF PROCEDURE: The patient was brought into the Operating Room. After proper identification, the patient was placed on the operating table in the supine position. General anesthesia was then administered and the patient was endotracheally intubated. Attention was then focussed in the area of the abdomen. The same was prepped and draped in the usual sterile fashion. An appropriate time-out was then carried out at this point. Then, I proceeded by making an incision in the infraumbilical region. The incision was carried through skin and subcutaneous tissue until the fascia was identified. The fascia was then carefully incised and the stay stitches were placed on either side of the fascia and the Colin port was then introduced. CO2 was insufflated into the abdomen and the robotic camera was then introduced. Inspection of the abdomen did not show any anterior abdominal wall adhesions. The gallbladder was noted to be enlarged and tense with evidence of moderate right upper quadrant inflammatory adhesions. So at this point, I proceeded by placing the left-sided port and also the right-sided port under vision and my patient care assistant; port was then placed right-sided lateral. So, at this point, the patient was then placed in slight reverse Trendelenburg position and rotated to his left. The robot was then brought in and then we proceeded by docking the robot with no difficulty. Once the robot was docked and everything looked fine, I proceeded by going into the console area. My patient care assistant, then grasped the fundus of the gallbladder and the same was retracted cephalad and using the grasper and the robotic [ ], I proceeded by taking down the inflammatory adhesions in the right upper quadrant. At the infundibulum, I proceeded by grasping the infundibulum, I proceeded by carefully opening the peritoneum covering the triangle of Calot and I was able to expose the cystic duct and the cystic artery. Each of these structures were then skeletonized for a distance of about 2 cm and then I proceeded by placing clips; proximal and distal clips on each of these structures. Using the robotic scissors, I proceeded by transecting these 2 structures. The gallbladder was then removed from the gallbladder fossa using the robotic cautery all the way down until I was able to remove it at the fundus as well. Further inspection did not reveal any other pathology. Hemostasis was noted to be adequate. So, at this point, the robot was then undocked. I scrubbed in and the gallbladder was then extracted from the abdomen using an Endopouch. Copious amount of irrigation was carried out at this point. Hemostasis was noted to be adequate. Then, I proceeded by closing the wound. Ports were withdrawn under vision. CO2 was let out of the abdomen. The infraumbilical fascia was approximated together using 0 Vicryl [id number] stitches and the skin was approximated together using 4-0 Monocryl subcuticular closure. Steri-Strips and sterile dressings were then applied. Instrument and sponges count was found correct x2. The patient was then woken up, extubated and taken to Recovery Room in stable condition. The patient tolerated the procedure well. TONY PAIGE MD Oct 04, 2024 22:36
--- NOTE | 2024-10-05 01:40 | NUR ---
nursing pm note patient alert and oriented times 4. plan of care discussed with him and his . they verbalized understanding. patient has been walking around the nurse's station about 500 feet tonight. He is finally passing gas. I offered him lactulose to stimulate his bowels and he refused. He is ambulatory to the toilet. He calls when has has pain in his abdomen. He verbalizes soreness in his abdomen tonight. No drainage on his incisions. He has slept about 4 hours tonight. Call light within reach, bed alarm on, 2 side rails up. will continue to monitor patient.
[2024-10-05 04:00] VITALS: BP 138/82; PULSE 92; RESP 17
[2024-10-05 04:13] LABS: BASOPHILS # (AUTO) 0.02 K/uL (0.00-0.20); BASOPHILS % (AUTO) 0.2 % (0.0-5.0); EOSINOPHILS # (AUTO) 0.01 K/uL (0.00-0.70); EOSINOPHILS % (AUTO) 0.1 % (0.0-8.0); HEMATOCRIT 41.2 % (42-54); IMMATURE GRANULOCYTE ABSOLUTE 0.04 K/uL (0-1); LYMPHOCYTES % (AUTO) 11.8 % (21.0-51.0); MEAN CORPUSCULAR HEMOGLOBIN 29.8 pg (27.0-33.0); MEAN CORPUSCULAR HGB CONC 34.5 g/dL (32.0-36.0); MEAN CORPUSCULAR VOLUME 86.6 fL (79-99); MONOCYTES # (AUTO) 0.7 K/uL (0.1-1.0); MONOCYTES % (AUTO) 8.3 % (3.0-13.0); NEUTROPHILS % (AUTO) 79.1 % (40.0-77.0); PLATELET COUNT (AUTO) 197 K/uL (130-400); RED BLOOD CELL COUNT(AUTO) 4.76 MIL/uL (4.50-6.20); RED CELL DISTRIBUTION WIDTH 11.8 % (11.0-15.5); WHITE BLOOD COUNT (AUTO) 8.8 K/uL (4.8-10.8)
[2024-10-05 04:37] LABS: ALBUMIN 3.1 g/dL (3.5-5.0); BILIRUBIN,TOTAL 0.9 mg/dL (0.2-1.0); CREATININE 1.1 mg/dL (0.5-1.3); POTASSIUM 4.8 mmol/L (3.5-5.1); TOTAL PROTEIN, SERUM 6.7 g/dL (6.0-8.3)
[2024-10-05] MEDS: LACTULOSE 20 GM/30 ML UDCUP PO PRN (05:17)
[2024-10-05 08:00] VITALS: BP 113/89; PULSE 95; RESP 18; TEMP 99.9
[2024-10-05 08:30] VITALS: O2SAT 93
[2024-10-05] MEDS: SIMETHICONE 80 MG TAB.CHEW PO ONE (09:51)
[2024-10-05 11:51] VITALS: BP 146/81; PULSE 82; RESP 18; TEMP 98.7
--- NOTE | 2024-10-05 11:56 | PN ---
[facility] PROGRESS NOTE Date of Service: Oct 05, 2024 Time of Service: 11:48 SUBJECTIVE: Patient is seen at the bedside. He is awake alert and oriented. Vitals temperature 97.7, pulse rate 70, respiratory rate 18 , blood pressure 144/73, SpO2 98% on room air. He complains of mild epigastric and right upper quadrant pain. He denies headache, dizziness, chest pain, palpitations, nausea, vomiting, difficulty in breathing, constipation, diarrhea, difficulty in urination. Labs WBC 7.3, hemoglobin 14, BUN 22 , creatinine 1.2. CT abdomen/pelvis resulted in no acute findings. Urinalysis positive for glucose ketones and protein. Pending General surgery consult and HIDA scan. 10/03 Patient is seen at the bedside. He is awake alert and oriented. Vitals temperature 0.7, pulse rate 60, respiratory rate 18, blood pressure 127/73, SpO2 97% on room air. No Acute events last night. He still complains of mild right upper quadrant and epigastric pain. He denies headache, dizziness, chest pain, palpitations, nausea, vomiting, difficulty in breathing, constipation, diarrhea. Patient is currently NPO. CBC and CMP unremarkable. HIDA scan NM revealed no gallbladder activity visible through 2 hour delay, findings are of concern for cystic duct obstruction and could indicate acute cholecystitis. Patient is scheduled for laparoscopic cholecystectomy today by General surgery consult. 10/04 Patient is seen at the bedside. He is awake alert and oriented. Vitals temperature 98.2, pulse rate 60, respiratory rate 17, blood pressure 131/80, SpO2 96% on room air. He is currently NPO. He still complains of moderate right upper quadrant and epigastric pain. He denies headache, dizziness, chest pain, palpitations, nausea, vomiting, difficulty in breathing, diarrhea. CBC, CMP are unremarkable. Magnesium, LFT levels are normal. Patient is scheduled for lap cholecystectomy today in the morning. 1:00 p.m.: Patient is back from the surgery. He is drowsy. Hemodynamically stable. He complains of moderate abdominal pain at the surgical site. 10/05 Postop day 1 Patient is seen at the bedside. He is awake alert and oriented. He is hemodynamically stable. He is complaining of constant, moderate diffuse abdominal pain and tightness. He is able to tolerate oral feeds. He is able to pass gas but did not have a bowel movement yet. He denies headache, dizziness, chest pain, palpitations, nausea, vomiting, difficulty in breathing. Labs CBC unremarkable, sodium 132, chloride 99, calcium 8.3, albumin 3.1 , AST 69. Patient is due for discharge tomorrow. REVIEW OF SYSTEMS 12-point ROS reviewed with patient. All pertinent positives mentioned above. Otherwise negative, nonpertinent, or noncontributory. PHYSICAL EXAM GENERAL APPEARANCE: The patient is awake, alert, and oriented, in no acute cardiopulmonary distress. NEUROLOGICAL: Cranial nerves II-XII grossly intact. Motor is 5/5 in bilateral upper and lower extremities proximal to distal. No sensory deficits. HEENT: Face is symmetric. Pupils are equal and reactive. Extraocular movements are intact. NECK: Supple. No JVD. No thyromegaly. No submental, submandibular, pre- /postauricular, occipital or supraclavicular lymphadenopathy. CHEST: Normal chest expansion. No Telemetry. LUNGS: Absence of any rales, rhonchi or any wheezing. CARDIOVASCULAR: Regular. S1 and S2 normal. No appreciable rubs, murmurs or gallops. ABDOMEN: Obese. Moderate right upper quadrant and epigastric tenderness, rigidity Soft, nontender, and nondistended. There is no rebound, voluntary guarding, : Deferred. No Segura. EXTREMITIES: Non-edematous and not cyanotic. No clubbing. Good capillary refill. SKIN: No skin breakdown. Vital Signs (last 8hr) Date Time Temp Pulse Resp B/P (MAP) Pulse Ox O2 Delivery O2 Flow Rate FiO2 10/05/24 08:30 93 Room Air* 0 21 10/05/24 08:00 99.9 95 18 113/89 93 Room Air 21 10/05/24 04:00 92 17 138/82 93 Room Air LABS: Laboratory: Test 10/05/24 11:23 10/05/24 03:36 10/04/24 04:33 Range/Units Whole Blood Glucose 166 H 70-110 MG/DL Bedside Glucose Comment Notified Nurse White Blood Count 8.8 # 4.8-10.8 K/uL Red Blood Count 4.76 4.50-6.20 MIL/uL Hemoglobin 14.2 14.0-18.0 g/dL Hematocrit 41.2 L 42-54 % Mean Corpuscular Volume 86.6 79-99 fL Mean Corpuscular Hemoglobin 29.8 27.0-33.0 pg Mean Corpuscular Hemoglobin Concent 34.5 32.0-36.0 g/dL Red Cell Distribution Width 11.8 11.0-15.5 % Platelet Count 197 130-400 K/uL Mean Platelet Volume 9.9 7.5-10.5 fL Immature Granulocyte % (Auto) 0.5 0-1 % Neutrophils (%) (Auto) 79.1 H 40.0-77.0 % Lymphocytes (%) (Auto) 11.8 L 21.0-51.0 % Monocytes (%) (Auto) 8.3 3.0-13.0 % Eosinophils (%) (Auto) 0.1 0.0-8.0 % Basophils (%) (Auto) 0.2 0.0-5.0 % Neutrophils # (Auto) 7.0 1.8-7.7 K/uL Lymphocytes # (Auto) 1.0 1.0-4.8 K/uL Monocytes # (Auto) 0.7 0.1-1.0 K/uL Eosinophils # (Auto) 0.01 0.00-0.70 K/uL Basophils # (Auto) 0.02 0.00-0.20 K/uL Absolute Immature Granulocyte (auto 0.04 0-1 K/uL Nucleated Red Blood Cells 0.0 0.0-0.19 % Sodium Level 132 L 136-145 mmol/L Potassium Level 4.8 3.5-5.1 mmol/L Chloride Level 99 L 101-111 mmol/L Carbon Dioxide Level 31 21-32 mmol/L Blood Urea Nitrogen 9 7-18 mg/dL Creatinine 1.1 0.5-1.3 mg/dL Glomerular Filtration Rate Calc 79 >90 mL/min Random Glucose 130 H 70-105 mg/dL Total Calcium 8.3 L 8.5-10.1 mg/dL Total Bilirubin 0.9 # 0.2-1.0 mg/dL Aspartate Amino Transf (AST/SGOT) 69 H 10-37 U/L Alanine Aminotransferase (ALT/SGPT) 78 # 12-78 U/L Alkaline Phosphatase 79 50-136 U/L Total Protein 6.7 6.0-8.3 g/dL Albumin 3.1 L 3.5-5.0 g/dL Magnesium Level 1.80 1.80-2.40 mg/dL Current Medications Medications (Trade) Dose Ordered Sig/Marta Route PRN Reason Start Time Stop Time Status Last Admin Dose Admin Acetaminophen (TYLenol 325MG TAB) 650 mg Q6H PRN PO FEVER/MILD PAIN LEVEL 1-3 10/02/24 05:00 11/01/24 04:59 10/03/24 02:13 650 MG Acetaminophen (TYLenol 650MG SUPPOSITORY) 650 mg Q6H PRN RC FEVER / MILD PAIN 1-3 IF NPO 10/02/24 05:00 11/01/24 04:59 Dextrose (D50w) 50 ml AD PRN IV HYPOGLYCEMIA PROTOCOL 10/02/24 06:30 11/01/24 06:29 Docusate Sodium (COLace 100MG CAP) 100 mg BID PRN PO c 10/02/24 05:00 11/01/24 04:59 Glucagon (Glucagon 1mg Kit) 1 mg AD PRN IM HYPOGLYCEMIA PROTOCOL 10/02/24 06:30 11/01/24 06:29 Hydralazine HCl (APRESOLine 20MG INJ) 10 mg Q2H PRN IV SBP GREATER THAN 160 10/02/24 05:00 11/01/24 04:59 Hydromorphone HCl (DiLAUDid 0.5MG INJ) 0.5 mg Q4H PRN IVP SEVERE PAIN (7-10) 10/03/24 21:00 10/04/24 13:11 DC Hydromorphone HCl (DiLAUDid 1MG INJ) 0.5 mg Q4H PRN IVP SEVERE PAIN (7-10) 10/02/24 05:00 10/03/24 20:41 DC 10/02/24 20:02 0.5 MG Hydromorphone HCl (DiLAUDid 1MG INJ) 1 mg Q3H3 PRN IVP PAIN LEVEL 7 TO 10 10/04/24 13:00 10/05/24 11:44 DC 10/05/24 05:17 1 MG Insulin Human Regular (humuLIN R 100 UNIT/ML 3ML) INSULIN SLIDING SCAL... ACHS SQ 10/02/24 07:30 11/01/24 07:29 10/04/24 20:08 3 UNIT Lactulose (Constulose 20gm/ 30ml Udcup) 20 gm Q6H PRN PO CONSTIPATION 10/02/24 05:00 11/01/24 04:59 10/05/24 11:11 20 GM Magnesium Sulfate 50 ml @ 0 mls/hr PROTOCOL PRN IV MAGNESIUM PROTOCOL 10/02/24 06:30 11/01/24 06:29 10/04/24 18:12 25 MLS/HR Morphine Sulfate (morPHINE 2MG SYG) 2 mg Q4H PRN IM MODERATE PAIN (4-6) 10/02/24 05:30 10/04/24 13:11 DC Ondansetron HCl (zoFRAN 4MG INJ) 4 mg Q6H PRN IVP NAUSEA/VOMITING 10/02/24 05:00 11/01/24 04:59 10/02/24 20:02 4 MG Oxycodone/ Acetaminophen (perCOCET) 1 tab Q4PRN PRN PO PAIN LEVEL 4 TO 6 10/04/24 13:00 10/11/24 12:59 10/04/24 20:19 1 TAB Pantoprazole Sodium (PROTonix 40MG INJ) 40 mg BID IVP 10/02/24 09:00 11/01/24 08:59 10/05/24 08:22 40 MG Piperacillin Sod/ Tazobactam Sod (Zosyn 3.375gm+NS 50ml) 3.375 gm Q8H IVPB 10/02/24 06:00 10/12/24 05:59 10/05/24 05:12 3.375 GM Potassium Chloride 100 ml @ 100 mls/hr AD PRN IV POTASSIUM PROTOCOL 10/02/24 06:30 11/01/24 06:29 Simethicone (Mylicon) 80 mg PCHS PO 10/05/24 13:00 11/04/24 12:59 Sodium Chloride 1,000 ml @ 75 mls/hr [id number] IV 10/02/24 06:00 10/05/24 10:18 DC 10/05/24 05:09 75 MLS/HR Sodium Chloride (NS 50ml) 50 ml AD IV 10/02/24 06:00 10/02/24 05:51 DC Temazepam (restORIL 15 MG CAP) 15 mg HS PRN PO INSOMNIA/SLEEP 10/02/24 05:00 11/01/24 04:59 DIAGNOSTICS / RADIOLOGY: ASSESSMENT: Acute cholecystitis POA Acute dehydration POA Acute kidney injury, GFR 71, improved Diabetes mellitus with hyperglycemia Ketonuria POA Proteinuria POA Uncontrolled hypertension Obesity, BMI 33 PLAN: Monitor for symptoms like fever, severe abdominal pain, vomiting, tachycardia, hypotension, infection or bleeding Continue ambulation Discontinue IV pain medications Continue Zosyn 3.375 mg IV Q 8hours Continue GI soft diet Continue P.r.n. medications for: Pain management, nausea, vomiting, constipation, hypertension. Monitor electrolytes and treat accordingly. Glucometer checks a.c. and HS with insulin regular sliding scale. Blood pressure checks every 4 hours and as needed. Continue DVT and GI prophylaxis: SCDs and Protonix. Repeat CBC, CMP tomorrow a.m. Plan to discharge tomorrow GEORGIA GUERRERO MD Oct 05, 2024 11:56
[2024-10-05] MEDS: SIMETHICONE 80 MG TAB.CHEW PO SCH (12:04)
[2024-10-05] MEDS ORDERED: hydroMORPHone 1 MG INJ IVP PRN (14:30)
[2024-10-05 14:45] VITALS: BP 145/79; PULSE 91; RESP 19; TEMP 98.1
--- NOTE | 2024-10-05 14:51 | PN ---
GENERAL SURGERY PROGRESS NOTE DATE OF SERVICE: Oct 05, 2024 TIME OF SERVICE: 14:50 Feeling better Pain likely gas pain Passing gas Tolerating diet PROBLEM LISTS: [ ] INTERVAL HISTORY: [ ] PHYSICAL EXAMINATION: GENERAL: [Patient is lying comfortably in bed, not in any obvious distress.] HEAD: [Normal with no signs of head trauma.] EYES: [Not pale not jaundiced afebrile to touch.] ENT: [ Normal.] NECK: [Supple,no tenderness,no lymphadenopathy,no masses,no thyromegaly ,no bruits, no JVD.] LUNGS: [Clear breath sounds bilaterally. No wheezes, rales, or rhonchi.] HEART: [Regular rate and rhythm. Normal S1 and S2, without murmurs, rub or gallop.] VASC: [No edema. Peripheral pulses normal and equal in all extremities.] ABD: [Bowel sounds present,soft, epigastric tenderness no masses, no organomegaly.] : [Normal, no suprapubic tenderness.] LYMPH: [No lymphadenopathy noted.] EXT: [ Warm soft, non tender.] SKIN: [ No rashes or lesions.] NEURO: [ Awake Alert and oriented x3.] LABORATORY: [ ] Hematology Labs: Test 10/05/24 03:36 Range/Units White Blood Count 8.8 # 4.8-10.8 K/uL Red Blood Count 4.76 4.50-6.20 MIL/uL Hemoglobin 14.2 14.0-18.0 g/dL Hematocrit 41.2 L 42-54 % Mean Corpuscular Volume 86.6 79-99 fL Mean Corpuscular Hemoglobin 29.8 27.0-33.0 pg Mean Corpuscular Hemoglobin Concent 34.5 32.0-36.0 g/dL Red Cell Distribution Width 11.8 11.0-15.5 % Platelet Count 197 130-400 K/uL Mean Platelet Volume 9.9 7.5-10.5 fL Immature Granulocyte % (Auto) 0.5 0-1 % Neutrophils (%) (Auto) 79.1 H 40.0-77.0 % Lymphocytes (%) (Auto) 11.8 L 21.0-51.0 % Monocytes (%) (Auto) 8.3 3.0-13.0 % Eosinophils (%) (Auto) 0.1 0.0-8.0 % Basophils (%) (Auto) 0.2 0.0-5.0 % Neutrophils # (Auto) 7.0 1.8-7.7 K/uL Lymphocytes # (Auto) 1.0 1.0-4.8 K/uL Monocytes # (Auto) 0.7 0.1-1.0 K/uL Eosinophils # (Auto) 0.01 0.00-0.70 K/uL Basophils # (Auto) 0.02 0.00-0.20 K/uL Absolute Immature Granulocyte (auto 0.04 0-1 K/uL Nucleated Red Blood Cells 0.0 0.0-0.19 % Chemistry Labs: Test 10/05/24 11:23 10/05/24 03:36 10/04/24 04:33 Range/Units Whole Blood Glucose 166 H 70-110 MG/DL Bedside Glucose Comment Notified Nurse Sodium Level 132 L 136-145 mmol/L Potassium Level 4.8 3.5-5.1 mmol/L Chloride Level 99 L 101-111 mmol/L Carbon Dioxide Level 31 21-32 mmol/L Blood Urea Nitrogen 9 7-18 mg/dL Creatinine 1.1 0.5-1.3 mg/dL Glomerular Filtration Rate Calc 79 >90 mL/min Random Glucose 130 H 70-105 mg/dL Total Calcium 8.3 L 8.5-10.1 mg/dL Total Bilirubin 0.9 # 0.2-1.0 mg/dL Aspartate Amino Transf (AST/SGOT) 69 H 10-37 U/L Alanine Aminotransferase (ALT/SGPT) 78 # 12-78 U/L Alkaline Phosphatase 79 50-136 U/L Total Protein 6.7 6.0-8.3 g/dL Albumin 3.1 L 3.5-5.0 g/dL Magnesium Level 1.80 1.80-2.40 mg/dL Does not rule out been able to hold it will have been able to do at least one DIAGNOSTICS / RADIOLOGY: [Copy/Paste Echos/Imaging Report here] ASSESSMENT: [] Abdominal pain Likely biliary colic versus acute cholecystitis Recurrent S/p robotic cholecystectomy PLAN: [Overall doing well May DC home Follow-up in my office in two weeks TONY JOSE MD Oct 05, 2024 14:51
--- NOTE | 2024-10-05 16:19 | DS ---
Discharge Summary Hospital Course Summary: Mr. Strange, a 54-year-old male with significant past medical history of morbid obesity, diabetes type 2 and essential hypertension [ not on any home medications], presented to the ED for evaluation of acute right upper quadrant and epigastric pain, since previous night on 10/02 after consuming chicken sausage and fajitas. He has noted experiencing similar symptoms in Mar, 2024. Remarkable lab results: BUN 22, GFR 71, glucose 216, UA: Positive ketones, glucose, protein, urobilinogen. In ED the patient received LR 2 L bolus, morphine 4 mg IV, Zofran 4 mg IV, viscous lidocaine p.o., Maalox p.o., Bentyl, Toradol 30 mg IV, post which he felt better. CT abdomen/pelvis resulted in no acute findings. He is admitted for further workup and management in view of suspected acute cholecystitis and ANTOLIN. In Inpatient the patient was started on Zosyn IV, magnesium potassium protocols, DVT, GI prophylaxis, IV fluids and was kept NPO. General surgery and gastroenterology consult was obtained. HIDA scan NM revealed no gallbladder activity visible through 2 hour delay, findings are of concern for cystic duct obstruction and could indicate acute cholecystitis and had undergone robotic cholecystectomy on 10/04/2024. No Postoperative complications were noted. He was slowly transitioned from clear liquid diet to GI soft bland diet Today on postop day 1, Patient is seen at the bedside. He is awake alert and oriented. He is hemodynamically stable. He stated that his pain is controlled effectively with the oral pain medications and is able to pass gas. He is able to tolerate GI soft bland diet without any nausea/vomiting. He is able to ambulate comfortably without any assistance. He denies headache, dizziness, chest pain, palpitations, nausea, vomiting, difficulty in breathing, difficulty in urination. Labs CBC unremarkable, sodium 132, chloride 99, calcium 8.3, albumin 3.1 , AST 69. No abnormal discharge, redness, warmth, is noted at the incision sites. He is cleared for discharge from General surgery standpoint. Patient is to be discharged today with new oral prescription of Tylenol#3 p.o.1 tablet daily p.r.n., Amoxiclav 875/125 mg for 14 days, Zofran p.r.n. for nausea, MiraLax for constipation by . Patient is advised to Avoid strenuous activity and heavy lifting for at least 2 weeks, Avoid fatty, greasy or fried foods, Stay hydrated, Keep incisions clean and dry, Immediately seek medical attention, if he experienced symptoms like fever, chills, redness, swelling, warmth at the incision sites, severe abdominal pain, bloating, or inability to pass gas or stool, persistent nausea, vomiting, or diarrhea. Follow up with PCP within 1-2 days, Follow up with Dr. Obrien, general surgery outpatient after 2 weeks, Follow up with Dr. Carbajal, gastroenterology outpatient within 1-2 weeks. Patient and family agreed with the discharge planning lead(s): General surgery consult Gastroenterology consult Procedure(s): PROCEDURE: ABD PEL W - CT ABDOMEN/PELVIS W/CONTRAST CT ABDOMEN/PELVIS W/CONTRAST REASON: Abdominal Pain COMPARISON: None. TECHNIQUE: Images are obtained from lung bases to symphysis pubis following IV contrast, 75 cc Omnipaque 350. FINDINGS: Lung bases are clear. There are no focal liver lesions. There are several very small subcentimeter renal cysts in each kidney. Kidneys appear otherwise unremarkable. Spleen and pancreas appear unremarkable. The gallbladder appears normal as well. Bowel loops appear unremarkable. This includes normal appearance of the appendix There is no evidence of free fluid or intraperitoneal air. There are no focal fluid collections. Aorta and retroperitoneum appear normal as do pelvic soft tissue structures. The anterior abdominal wall is intact. Osseous structures appear unremarkable. IMPRESSION: 1. No acute finding on postcontrast CT abdomen and pelvis. PROCEDURE: HIDA EF - NM HIDA WITH EF/CCK NM HIDA WITH EF/CCK REASON: Abdomial pain, Suspected cholecystitis COMPARISON: None TECHNIQUE: Images are obtained following administration of 7 mCi technetium 99m Choletec. FINDINGS: There is prompt hepatic parenchymal uptake. There is prompt excretion into the common duct and small bowel. There is no gallbladder activity visible through the 1 hour image. 2 hour delayed exam shows near complete clearing of hepatic activity with no gallbladder activity seen. IMPRESSION: 1.No gallbladder activity visible through 2 hour delay, findings are of concern for cystic duct obstruction and could indicate acute cholecystitis. PROCEDURES PREFORMED: 1. Robotic Cholecystectomy SURGEON: Micah Paige MD ANESTHESIA: General. ESTIMATED BLOOD LOSS: Minimal. SPECIMEN(S) REMOVED: Gallbladder. FINDINGS: Very enlarged tense gallbladder moderate right upper quadrant inflammatory adhesions COMPLICATIONS: None. DESCRIPTION OF PROCEDURE: The patient was brought into the Operating Room. After proper identification, the patient was placed on the operating table in the supine position. General anesthesia was then administered and the patient was endotracheally intubated. Attention was then focussed in the area of the abdomen. The same was prepped and draped in the usual sterile fashion. An appropriate time-out was then carried out at this point. Then, I proceeded by making an incision in the infraumbilical region. The incision was carried through skin and subcutaneous tissue until the fascia was identified. The fascia was then carefully incised and the stay sti tches were placed on either side of the fascia and the Colin port was then introduced. CO2 was insufflated into the abdomen and the robotic camera was then introduced. Inspection of the abdomen did not show any anterior abdominal wall adhesions. The gallbladder was noted to be enlarged and tense with evidence of moderate right upper quadrant inflammatory adhesions. So at this point, I proceeded by placing the left-sided port and also the right-sided port under vision and my assistant coach; port was then placed right-sided lateral. So, at this point, the patient was then placed in slight reverse Trendelenburg position and rotated to his left. The robot was then brought in and then we proceeded by docking the robot with no difficulty. Once the robot was docked and everything looked fine, I proceeded by going into the console area. My assistant coach, then grasped the fundus of the gallbladder and the same was retracted cephalad and using the grasper and the robotic [ ], I proceeded by taking down the inflammatory adhesions in the right upper quadrant. At the infundibulum, I proceeded by grasping the infundibulum, I proceeded by carefully opening the peritoneum covering the triangle of Calot and I was able to expose the cystic duct and the cystic artery. Each of these structures were then skeletonized for a distance of about 2 cm and then I proceeded by placing clips; proximal and distal clips on each of these structures. Using the robotic scissors, I proceeded by transecting these 2 structures. The gallbladder was then removed from the gallbladder fossa using the robotic cautery all the way down until I was able to remove it at the fundus as well. Further inspection did not reveal any other pathology. Hemostasis was noted to be adequate. So, at this point, the robot was then undocked. I scrubbed in and the gallbladder was then extracted from the abdomen using an Endopouch. Copious amount of irrigation was carried out at this point. Hemostasis was noted to be adequate. Then, I proceeded by closing the wound. Ports were withdrawn under vision. CO2 was let out of the abdomen. The infraumbilical fascia was approximated together using 0 Vicryl [id number]-[id number] stitches and the skin was approximated together using 4-0 Monocryl subcuticular closure. Steri-Strips and sterile dressings were then applied. Instrument and sponges count was found correct x2. The patient was then woken up, extubated and taken to Recovery Room in stable condition. The patient tolerated the procedure well. Assessment/Plan: ASSESSMENT: Acute cholecystitis POA, s/p Robotic cholecystectomy on 10/04 Acute dehydration POA, Improved Acute kidney injury, GFR 71, improved Diabetes mellitus with hyperglycemia Ketonuria POA Proteinuria POA Uncontrolled hypertension Obesity, BMI 33 PLAN: ADMISSION DATE : 10/02/2024 DISCHARGE DATE : 10/05/2024 DISPOSITION : Home CONDITION : Stable [employer] Furn[employer] Supervisor(s) : General surgery consult , gastroenterology consult FOLLOW UP APPOINTMENTS : Follow up with PCP within 1-2 days, Follow up with Dr. Obrien, general surgery outpatient after 2 weeks, Follow up with Dr. Carbajal, gastroenterology outpatient within 1-2 weeks PROCEDURES : Laparoscopic cholecystectomy on 10/04/2024 IMAGING (s) : CT abdomen/pelvis, HIDA scan MICROBIOLOGY : None ACTIVITY : ab kailee HOME MEDICATIONS : Patient is not any home medications currently NEW MEDICATIONS : Patient is given oral prescription of Tylenol#3 1 tablet daily, p.r.n. for pain, Amoxiclav 875/125 mg for 14 days, Zofran p.r.n. for nausea/vomiting, MiraLax for constipation by . TEACHING : Advised to Avoid strenuous activity and heavy lifting for at least 2 weeks, Avoid fatty, greasy or fried foods, Stay hydrated, Keep incisions clean and dry, Immediately seek medical attention, if you experience symptoms like fever, chills, redness, swelling, warmth at the incision sites, severe abdominal pain, bloating, or inability to pass gas or stool, persistent nausea, vomiting, or diarrhea The patient was instructed to present to the nearest Emergency Department or call 911 should their symptoms return or worsen. Home Medications: No Active Prescriptions or Reported Meds Time spent arranging discharge: 1-30 minutes ATTESTATION BY PHYSICIAN I have seen and examined the patient. I reviewed the documentation, medical deci macrina making, and treatment plan as noted by the resident above. I agree with the findings and plan of care. Amy Ontiveros MD, PRIYANKA MD Oct 05, 2024 16:19
--- NOTE | 2024-10-05 17:50 | NUR ---
PATIENT BEING DC HOME WITH AT BEDSIDE. REMOVED 20G PIV FROM THE RIGHT AC TIP INTACT NO REDNESS OR SWELLING NOTED TO SITE. APPLIED A GAUZE DRESSING TO SITE. HANDED PAPER SCRIPT TO PATIENT AND INSTRUCTED PATIENT TO TAKE TO PREFERRED PHARMACY [facility], PATIENT AGREED TO DO SO. INSTRUCTED PATIENT TO FOLLOW UP WITH PCP IN 2-3 DAYS, FOLLOW UP WITH DR. SAMUELS IN 2 WEEKS, AND FOLLOW UP WITH PATIENTS GI DOCTOR FOR CONTINUATION OF CARE. PATIENT AGREED TO DO SO. PATIENT BEING WHEELED DOWN TO PRIVATE VEHICLE PROVIDED BY .
== END 2024-10-05 17:20 | disposition home or self-care (01) | DRG 415 ==
LOC: EDH 01:45 → EDHIP 04:56 → 4AH 05:29
PROVIDERS: ADMIT Hospitalist; ATTEND Hospitalist
PROC: 8E0W0CZ Robotic Assisted Procedure of Trunk Region, Open Approach (ICD-10-PCS; 2024-10-04)
PROC: 0FT40ZZ Resection of Gallbladder, Open Approach (ICD-10-PCS; principal; 2024-10-04 10:50)
DX: K80.00 Calculus of gallbladder with acute cholecystitis without obstruction (principal); N17.9 Acute kidney failure, unspecified; E86.0 Dehydration; E11.65 Type 2 diabetes mellitus with hyperglycemia; Z68.33 Body mass index [BMI] 33.0-33.9, adult; E66.9 Obesity, unspecified; K82.8 Other specified diseases of gallbladder; I10 Essential (primary) hypertension; K59.00 Constipation, unspecified; E78.00 Pure hypercholesterolemia, unspecified; Z82.49 Family history of ischemic heart disease and other diseases of the circulatory system
CPT/HCPCS: 36415; 74177; 78227; 80053; 81001; 82150; 82550; 82948; 83690; 83735; 84100; 84484; 85025; 96372; 96374; 96375; 96376; 99285; A4450; A9537; G0378; J1171; J1815; J1885; J2003; J2175; J2250; J2270; J2371; J2405; J2470; J2543; J2704; J2710; J3010; J3475; J3490; J7030; J7120; Q9967; A4216; A4222; A4223; A4600; A4930; C1769; J0665

== ENCOUNTER 2025-04-11 07:55 | Emergency (ER) | payer OTHER ==
[~2025-04-11] VITALS: Ht 182.9 cm; Wt 124.7 kg
[2025-04-11 08:21] LABS: APPEARANCE,URINE CLEAR (CLEAR); BILIRUBIN,URINE NEGATIVE (NEGATIVE); COLOR,URINE LIGHT-YELLOW (YELLOW); GLUCOSE, URINE (UA) NEGATIVE (NEGATIVE); KETONES,URINE NEGATIVE (NEGATIVE); LEUKOCYTE ESTERASE ,URINE NEGATIVE Leu/uL (NEGATIVE); NITRATE,URINE NEGATIVE (NEGATIVE); OCCULT BLOOD,URINE NEGATIVE (NEGATIVE); PH,URINE 5.5 (5.0-8.0); PROTEIN,URINE NEGATIVE (NEGATIVE); UROBILINOGEN,URINE 0.2 mg/dL (0.2-1.0)
[2025-04-11 08:24] LABS: ADD UA MICROSCOPIC NO
[2025-04-11] MEDS: ondanSETRON 4MG TABLET PO ONE (08:27)
[2025-04-11] MEDS: FAMOTIDINE 20MG TAB PO ONE (08:27)
[2025-04-11] MEDS: ketOROlac 30MG VIAL (30MG/ML) IVP ONE (08:28)
--- NOTE | 2025-04-11 08:32 | EKG ---
[facility] Test Date: 2025-04-11 Test Time: 08:29:42 Pat Name: ABBI KURTZ Department: [facility] Patient ID: [id number] Room: Gender: Night Nurse: 07 : 1970 Requested By: ELEUTERIO MARRERO Order Number: [id number] Reading MD: Tone Sims Measurements Intervals Wells Rate: 75 P: 28 IN: 153 QRS: -2 QRSD: 87 T: 45 QT: 373 QTc: 418 Interpretive Statements Sinus rhythm Low voltage, precordial leads Compared to ECG 08/17/2024 12:30:49 Low QRS voltage now present Electronically Signed On 04-11-2025 11:35:31 CDT by Tone Sims Please click the below link to view image of tracing.
[2025-04-11 09:04] LABS: BASOPHILS # (AUTO) 0.05 K/uL (0.00-0.20); BASOPHILS % (AUTO) 0.5 % (0.0-5.0); EOSINOPHILS # (AUTO) 0.08 K/uL (0.00-0.70); EOSINOPHILS % (AUTO) 0.8 % (0.0-8.0); HEMATOCRIT 44.7 % (42-54); IMMATURE GRANULOCYTE ABSOLUTE 0.03 K/uL (0-1); LYMPHOCYTES # (AUTO) 0.9 K/uL (1.0-4.8); LYMPHOCYTES % (AUTO) 9.7 % (21.0-51.0); MEAN CORPUSCULAR HEMOGLOBIN 29.3 pg (27.0-33.0); MEAN CORPUSCULAR HGB CONC 34.5 g/dL (32.0-36.0); MONOCYTES # (AUTO) 0.5 K/uL (0.1-1.0); MONOCYTES % (AUTO) 5.6 % (3.0-13.0); NEUTROPHILS % (AUTO) 83.1 % (40.0-77.0); PLATELET COUNT (AUTO) 210 K/uL (130-400); RED BLOOD CELL COUNT(AUTO) 5.26 MIL/uL (4.50-6.20); RED CELL DISTRIBUTION WIDTH 12.2 % (11.0-15.5); WHITE BLOOD COUNT (AUTO) 9.6 K/uL (4.8-10.8)
[2025-04-11 09:13] LABS: CREATININE 0.8 mg/dL (0.5-1.3); POTASSIUM 4.5 mmol/L (3.5-5.1)
--- NOTE | 2025-04-11 10:23 | HMCIMG ---
CT ABD/PEL WO CON RENAL/APPY REASON: Periumbilical pain with vomitings COMPARISON: 10/02/2024 FINDINGS: Lung bases are clear. There are no focal liver lesions. There are normal-appearing kidneys.. Spleen and pancreas appear unremarkable. The gallbladder appears normal as well. Bowel loops appear unremarkable. This includes normal appearance of the appendix There is no evidence of free fluid or intraperitoneal air. There are no focal fluid collections. Aorta and retroperitoneum appear normal as do pelvic soft tissue structures. The anterior abdominal wall is intact. Osseous structures appear unremarkable. IMPRESSION: 1. Negative noncontrast CT abdomen and pelvis. CT was performed with one or more following dose reduction techniques: automated exposure control, adjustment of the mA and kv according to patient's size, or use of a iterative reconstruction technique.
[2025-04-11] MEDS ORDERED: PANT40TA PO (10:44)
--- NOTE | 2025-04-11 10:45 | ERN ---
ED Note History of Present Illness Stated Complaint: ABD PAIN Chief Complaint: Abdominal Pain Time Seen by MD: 08:14 Dictation: This is a 54-year-old male who presented to the emergency room with severe periumbilical abdominal pain and nausea that started today. He stated that he had similar kind of pain before and he ended up having cholecystectomy at the time and he was concerned he might have some other process and came in. He denied any fever chills or rigors. No diarrhea but he did have 3 bowel movements. He took Pepto-Bismol and has drank some herbal teas without much relief and hence he is here for further evaluation He has a history of H pylori in the past. Also reports severe bloating. Temperature 98 pulse 63 respirations 20 blood pressure 158/98 with a pulse oximetry of 99% on room air His chronic medical problems include diabetes mellitus and gastroesophageal reflux Allergies: Coded Allergies: clindamycin (Unverified Allergy, Unknown, 06/06/24) Home Meds Active Scripts Pantoprazole Sodium (Protonix) 40 Mg Tablet.dr, 1 TAB PO DAILY for 30 Days, #30 TAB 0 Refills Prov:ELEUTERIO MARRERO MD 04/11/25 Past Medical History Past Medical History: Diabetes-Type II Surgical History: Cholecystectomy Surgical History Other: VASECTOMY RN Note Reviewed/Agreed w/PFSH: Yes Review of System Dictation Constitutional: Negative for fever,chills, and weight loss Eyes: Negative for injury, pain,redness, and discharge ENT: Negative for injury,pain or swelling Cardiovascular: Negative for chest pain, palpitations, and edema Respiratory: Negative for shortness of breath, cough, and wheezing, Abdomen/GI: Positive for abdominal pain, nausea, vomiting, diarrhea, and constipation Back: Negative for injury and pain : Negative for injury, bleeding and discharge MS/Extremity: Negative for injury and deformity Skin: Negative for rash, and discoloration Neuro: Negative for headache, weakness, numbness, tingling, and seizure Psych: Negative for suicide ideation, homicidal ideation, and hallucinations Initial Vital Sign VS Vital Signs Date Time Temp Pulse Resp B/P (MAP) Pulse Ox O2 Delivery O2 Flow Rate FiO2 04/11/25 07:56 98.1 63 20 158/98 Room Air 0 04/11/25 08:33 95 21 Physical Exam Dictation General: awake, alert, NAD Head/Face: Normocephalic, atraumatic Eyes: PERRL, EOMI, vision at baseline ENT: oral cavity clear, TMs clear, no signs of infection Neck: Trachea midline, supple, no nuchal rigidity Cardiovascular: RRR, normal S1/S2, No MRGs, no JVD Respiratory: CTAB, no respiratory distress, No rales or wheezes Abdomen: Soft, non-tender, non-distended, normal bowel sounds, no guarding or rebound. Skin: Warm, dry, normal turgor, no rash MS/Extremity: Pulses equal, no cyanosis, neurovascular intact, FROM Neuro: COAx4, GCS 15, strength 5/5, CN 2-12 intact, normal cerebellar exam, normal gait, Psych: Normal behavior, mood, and affect normal Extremities-trace edema without any palpable cords, Homans sign is negative Results (Laboratory/Radiology) Laboratory/Radiology Laboratory Tests Test 04/11/25 08:10 04/11/25 08:22 Urine Color LIGHT-YELLOW (YELLOW) Urine Appearance CLEAR (CLEAR) Urine pH 5.5 (5.0-8.0) Urine Specific [place] 1.022 (1.001-1.031) Urine Protein NEGATIVE mg/dL (NEGATIVE) Urine Glucose (UA) NEGATIVE mg/dL (NEGATIVE) Urine Ketones NEGATIVE mg/dL (NEGATIVE) Urine Occult Blood NEGATIVE (NEGATIVE) Urine Nitrate NEGATIVE (NEGATIVE) Urine Bilirubin NEGATIVE mg/dL (NEGATIVE) Urine Urobilinogen 0.2 mg/dL (0.2-1.0) Urine Leukocyte Esterase NEGATIVE Mike/uL White Blood Count 9.6 K/uL (4.8-10.8) Red Blood Count 5.26 MIL/uL (4.50-6.20) Hemoglobin 15.4 g/dL (14.0-18.0) Hematocrit 44.7 % (42-54) Mean Corpuscular Volume 85.0 fL (79-99) Mean Corpuscular Hemoglobin 29.3 pg (27.0-33.0) Mean Corpuscular Hemoglobin Concent 34.5 g/dL (32.0-36.0) Red Cell Distribution Width 12.2 % (11.0-15.5) Platelet Count 210 K/uL (130-400) Mean Platelet Volume 10.0 fL (7.5-10.5) Immature Granulocyte % (Auto) 0.3 % (0-1) Neutrophils (%) (Auto) 83.1 % (40.0-77.0) H Lymphocytes (%) (Auto) 9.7 % (21.0-51.0) L Monocytes (%) (Auto) 5.6 % (3.0-13.0) Eosinophils (%) (Auto) 0.8 % (0.0-8.0) Basophils (%) (Auto) 0.5 % (0.0-5.0) Neutrophils # (Auto) 8.0 K/uL (1.8-7.7) H Lymphocytes # (Auto) 0.9 K/uL (1.0-4.8) L Monocytes # (Auto) 0.5 K/uL (0.1-1.0) Eosinophils # (Auto) 0.08 K/uL (0.00-0.70) Basophils # (Auto) 0.05 K/uL (0.00-0.20) Absolute Immature Granulocyte (auto 0.03 K/uL (0-1) Nucleated Red Blood Cells 0.0 % (0.0-0.19) White Cell Morphology Comment See comments Sodium Level 138 mmol/L (136-145) Potassium Level 4.5 mmol/L (3.5-5.1) Chloride Level 103 mmol/L (101-111) Carbon Dioxide Level 29 mmol/L (21-32) Blood Urea Nitrogen 14 mg/dL (7-18) Creatinine 0.8 mg/dL (0.5-1.3) Glomerular Filtration Rate Calc 105 mL/min (>90) Random Glucose 163 mg/dL (70-105) H Total Calcium 9.0 mg/dL (8.5-10.1) Lipase 19 U/L (16-77) Labs Reviewed?: Yes ED Course ED Course Orders Procedure Category Date Status Time Vital Signs Per CPOE 04/11/25 Transmitted Routine 08: Saline Lock Iv CPOE 04/11/25 Transmitted 08:02 Cbc With Differential LAB 04/11/25 Complete 08:02 Lipase LAB 04/11/25 Complete 08:02 Urinalysis Profile LAB 04/11/25 Complete 08:02 12 Lead Ekg Tracing- EKG 04/11/25 Complete Technical 08:02 Basic Metabolic Panel LAB 04/11/25 Complete 08:02 Ketorolac PHA 04/11/25 Complete Tromethamine 30mg/Ml 08:30 Ondansetron 4mg PHA 04/11/25 Complete Tablet (Zofran 4mg 08:30 Famotidine 20mg Tab PHA 04/11/25 Complete (Pepcid 20mg Tab) 08:30 Ct Abd/Pel Wo Con CT 04/11/25 Resulted Renal/Appy 09:33 Current Medications Medications (Trade) Dose Ordered Sig/Marta Route PRN Reason Start Time Stop Time Status Last Admin Dose Admin Famotidine (Pepcid 20mg Tab) 20 mg ONCE ONCE PO 04/11/25 08:30 04/11/25 08:31 DC 04/11/25 08:27 Ketorolac Tromethamine (toRADol) 30 mg ONCE ONCE IVP 04/11/25 08:30 04/11/25 08:31 DC 04/11/25 08:28 Ondansetron HCl (zoFRAN 4MG TABLET) 4 mg ONCE ONCE PO 04/11/25 08:30 04/11/25 08:31 DC 04/11/25 08:27 Vital Signs Date Time Temp Pulse Resp B/P (MAP) Pulse Ox O2 Delivery O2 Flow Rate FiO2 04/11/25 08:33 98.2 64 18 140/80 95 Room Air* 0 21 04/11/25 07:56 98.1 63 20 158/98 Room Air 0 We will perform diagnostic labs, advanced imaging and administer medications according to the patient's complaint. Once the results are available, will review and personally interpreted the labs to rule out any acute life- threatening emergency the trach require immediate intervention and treatment. I will then re-evaluate the patient after treatment and diagnostic exams have return to determine whether the patient requires any further testing, can safely be discharged home or need further admission to hospital for additional treatment and evaluation. Labs reviewed CBC BNP 7 are completely within normal limits urinalysis is unremarkable. 10:[address] scan of the abdomen and pelvis was done as patient had similar pain last year when initially imaging studies were considered normal but ended up having cholecystectomy CT scan is reported as completely normal. I updated the patient and his spouse that there was no evidence of any obstruction diverticulitis appendicitis or any acute intra-abdominal pathology. The abdominal pain could be simply dyspepsia. They verbalized full understanding. We will discharge him on PPI and to follow up with his primary Medical Decision Making MDM MDM: Differential diagnosis: Appendicitis, gastritis, esophagitis, dyspepsia, SBO Rationale: Tests considered and ordered secondary to shared decision making include: Previous outside records reviewed: Old ER visits. Risk of complication and/or morbidity or mortality of patient management: None Medications-Per medication reconciliation Need for hospitalization: Patient does not meet criteria for hospitalization. Need for emergency major/minor surgery: No There are no social concerns with this patient. Prescription drug management Prescriptions will include symptomatic care Patient's prior external medical records from other ER visits were reviewed by me as indicated. Prior testing and results from previous visits were reviewed. Prior tests were taken into account with medical decision making and resource utilization, independent historian/historians were used to obtain complete medical history. I independently interpreted the test that were performed, results were reviewed by me and considered findings on radiology if ordered. Medical management and examination interpretation discussions were had by me with other qualified healthcare professionals as indicated for the patient's care. Problem List Problem List: (1) GERD with esophagitis (2) Dyspepsia DX & DISP Disposition: Discharge Departure Impression: Primary Impression: GERD with esophagitis Additional Impression: Dyspepsia Condition: Stable Scripts Pantoprazole Sodium (Protonix) 40 Mg Tablet.dr 1 TAB PO DAILY for 30 Days, #30 TAB 0 Refills Prov: ELEUTERIO MARRERO MD 04/11/25 Additional Instructions: Patient and the caregiver have been informed of all the diagnostic tests and the imaging conducted during the today's visit to the emergency room and has verbalized understanding of the results I have personally reviewed and interpreted all diagnostic exams performed here in the ER today as well as the vital signs documented by the nursing staff. The patient is now being discharged to home and should follow up with the primary care physician or the specialist as directed by the ER staff. Follow-up with primary care provider in 1 to 2 days. Take medications as d irected here in the emergency room. Okay to continue home medications unless otherwise discussed during your visit in the emergency room today. Return to your nearest emergency room if symptoms worsen or if there is no improvement. Call 911 if you need immediate assistance. Take Tylenol or Motrin [id number] as needed and if no contraindications are present. Increase oral hydration. A wound culture or urine culture was ordered here in the emergency room department please follow-up with primary care provider and advise them to get repeat ports from our facility. If you had any Torin wrap/splints that were applied here, please do not remove them until you see your primary care or specialty. Referrals: SELF,REFERRAL (PCP) ELEUTERIO MARRERO MD Apr 11, 2025 10:45
[2025-04-11 11:42] VITALS: BP 169/64; PULSE 92; RESP 18; TEMP 98.2; O2SAT 95
== END 2025-04-11 11:51 | disposition home or self-care (01) ==
LOC: EDH 07:55
DX: K21.00 Gastro-esophageal reflux disease with esophagitis, without bleeding (principal); R10.13 Epigastric pain; E11.9 Type 2 diabetes mellitus without complications; Z79.899 Other long term (current) drug therapy; Z88.1 Allergy status to other antibiotic agents; Z90.49 Acquired absence of other specified parts of digestive tract
CPT/HCPCS: 99285; 74176; 96374; 80048; 83690; 85025; 81003; 36415; 93005; Q0162; J1885